=== PATIENT | male | born 1980 | race American Indian/Alaskan Native ===

== ENCOUNTER 2021-08-08 17:23 | Inpatient (IN) | payer SELFPAY ==
--- NOTE | 2021-08-08 18:07 | Emergency Department Report ---
HPI - General Chief Complaint: Dyspnea/Respdistress Time Seen by Provider: 08/08/21 17:49 - HPI HPI: MSE 7 The patient is a 41-year-old male present with a chief complaint of abdominal swelling. The patient states over the past 4 days he has noticed increased abdominal girth in bilateral lower extremities edema. The patient states increased abdominal girth has affected his breathing so whenever he does any heavy lifting he gets very short of breath. Patient denies shortness of breath with walking or going upstairs. Patient denies history of fever. Patient states he developed a productive cough over the past 2 weeks once he stopped smoking. Patient states he has not received any vaccinations against Covid. ED Past Medical Hx - Past Medical History Previous Medical History?: No - Surgical History Additional Surgical History: Left knee - Family History Family history: no significant - Social History Smoking Status: Former Smoker (None x2 weeks) Substance Use Type: Marijuana ED Review of Systems ROS: Stated complaint: ABD PAIN Other details as noted in HPI Constitutional: denies: fever Eyes: denies: eye pain ENT: denies: throat pain Respiratory: shortness of breath, SOB with exertion Cardiovascular: denies: chest pain Endocrine: no symptoms reported Gastrointestinal: denies: abdominal pain Genitourinary: denies: dysuria Skin: denies: rash Neurological: denies: headache Physical Exam - Physical Exam Vital Signs: Vital Signs 08/08/21 19:06 Temperature 98.4 F Pulse Rate 115 H Respiratory 16 Rate Blood Pressure 132/86 O2 Sat by Pulse 100 Oximetry Physical Exam: GENERAL: The patient is well-developed well-nourished male sitting in chair not appearing to be in acute distress. [] HEENT: Normocephalic. Atraumatic. Extraocular motions are intact. Patient has moist mucous membranes. NECK: Supple. Trachea midline CHEST/LUNGS: Clear to auscultation. There is no respiratory distress noted. HEART/CARDIOVASCULAR: Regular. There is no tachycardia. There is no gallop rub or murmur. ABDOMEN: Abdomen is soft, nontender. Patient has normal bowel sounds. Obese SKIN: There is no rash. There is 1+ bilateral lower extremity pitting edema. There is no diaphoresis. NEURO: The patient is awake, alert, and oriented. The patient is cooperative. The patient has no focal neurologic deficits. The patient has normal speech. GCS 15 MUSCULOSKELETAL: There is no evidence of acute injury. ED Medical Decision Making - Lab Data Result diagrams: 08/08/21 18:23 08/08/21 18:23 Laboratory Tests 08/08/21 08/08/21 18:23 18:23 WBC 4.6 RBC 5.43 H Hgb 13.7 Hct 42.6 MCV 78 L MCH 25 L MCHC 32 RDW 15.0 Plt Count 197 [place] % (Auto) Child Psychologist Sodium 141 Potassium 3.8 Chloride 106.6 Carbon Dioxide 20 L Anion Gap 18 BUN 8 L Creatinine 0.7 L Estimated GFR > 60 BUN/Creatinine Ratio 11 Glucose 183 H Calcium 8.5 Total Bilirubin 0.60 AST 15 ALT < 5 L Alkaline Phosphatase 142 H NT-Pro-B Natriuret Pep 2792 H Total Protein 7.8 Albumin 3.4 L Albumin/Globulin Ratio 0.8 Lipase 23 - EKG Data -: EKG Interpreted by Me EKG shows normal: sinus rhythm, axis Rate: tachycardia (113 bpm) - EKG Data When compared to previous EKG there are: previous EKG unavailable Interpretation: other (No ischemic changes) - Radiology Data Radiology results: report reviewed (Acute abdominal series with chest x-ray), image reviewed (Acute abdominal series with chest x-ray) interpreted by me: Acute abdominal series with chest x-ray-no focal infiltrates, pneumothorax. No free air. Nonobstructive bowel gas pattern [address] [address] XRay Report Signed Patient: JUANA OJEDA III MR#: [id number] : 1980 Acct:[id number] Age/Sex: 41 / M ADM Date: 08/08/21 Loc: ED Attending Dr: Ordering Physician: BRENNA JENKINS MD Date of Service: 08/08/21 Procedure(s): XR abd series w cxr 1V Accession Number(s): [id number] cc: BRENNA JENKINS MD Fluoro Time In Minutes: ABDOMEN 4 VIEW(S) INDICATION: Increased abdominal girth, shortness of breath. COMPARISON: None available. FINDINGS: Bowel gas pattern: No significant abnormality. Free air: None seen. Stones: None seen. Chest: The cardiac silhouette is moderately enlarged. The lungs are clear. Additional Findings: No additional significant findings. IMPRESSION: Moderate cardiomegaly without other acute findings. Signer Name: Charles Peace MD Signed: 08/08/2021 6:25 PM Workstation Name: [id number] Transcribed By: [place] Dictated By: Charles Peace MD Electronically Authenticated By: Charles Peace MD Signed Date/Time: 08/08/211824 DD/ 24 TD/TT: Print Cancel - Differential Diagnosis Peripheral edema, CHF, renal insufficiency/renal failure, hepatic failure Critical care attestation.: If time is entered above; I have spent that time in minutes in the direct care of this critically ill patient, excluding procedure time. ED Disposition Clinical Impression: New onset of congestive heart failure, Peripheral edema Disposition: ADMITTED INPATIENT Is pt being admited?: Yes Does the pt Need Aspirin: Yes Condition: Fair Time of Disposition: 19:15 (Hospitalist notified (Dr. Hawley))
--- NOTE | 2021-08-08 18:30 | XRay Report ---
ABDOMEN 4 VIEW(S) INDICATION: Increased abdominal girth, shortness of breath. COMPARISON: None available. FINDINGS: Bowel gas pattern: No significant abnormality. Free air: None seen. Stones: None seen. Chest: The cardiac silhouette is moderately enlarged. The lungs are clear. Additional Findings: No additional significant findings. IMPRESSION: Moderate cardiomegaly without other acute findings. Signer Name: Charles Peace MD Signed: 08/08/2021 6:25 PM Workstation Name: [id number]
[2021-08-08 18:40] LABS: Hematocrit 42.6 % (35.5-45.6); Hemoglobin 13.7 gm/dl (11.8-15.2); Mean Corpuscular HGB Conc 32 % (32-34); Mean Corpuscular Volume 78 fl (84-94); Platelet Count 197 K/mm3 (140-440); Red Blood Count 5.43 M/mm3 (3.65-5.03)
[2021-08-08 19:02] LABS: Albumin 3.4 g/dL (3.9-5); Blood Urea Nitrogen 8 mg/dL (9-20); Calcium 8.5 mg/dL (8.4-10.2); Hemolysis Index 8
[2021-08-08 19:12] LABS: Alanine Aminotransferase < 5 units/L (7-56); BUN/Creatinine Ratio 11
[2021-08-08] MEDS ORDERED: ASPIRIN 325 MG TAB PO ONE (19:15)
[2021-08-08] MEDS ORDERED: FUROSEMIDE 40 MG/4 ML INJ IV ONE (19:20)
[2021-08-08 19:45] LABS: RBC Morphology Normal; Total Cells Counted 100
[2021-08-08] MEDS ORDERED: oxyCODONE /ACETAMINOPHEN 5-325MG TAB PO PRN (23:06)
[2021-08-08] MEDS ORDERED: METOCLOPRAMIDE 10 MG/2 ML INJ IV PRN (23:06)
[2021-08-08] MEDS ORDERED: ONDANSETRON 4 MG/2 ML INJ IV PRN (23:06)
[2021-08-08] MEDS ORDERED: ACETAMINOPHEN 325 MG TAB PO PRN (23:06)
[2021-08-08] MEDS: HEPARIN 5,000 UNIT/1 ML VIAL SUB-Q SCH (23:28)
[2021-08-08] MEDS: FUROSEMIDE 40 MG/4 ML INJ IV SCH (23:29)
[2021-08-09] MEDS: FUROSEMIDE 40 MG/4 ML INJ IV SCH ×2 (05:16→18:08)
--- NOTE | 2021-08-09 07:12 | History and Physical Report ---
History of Present Illness Date of examination: 08/08/21 Date of admission: 08/08/21 19:55 Chief complaint: Increasing shortness of breath for 2 weeks History of present illness: 41-year-old male with no significant past medical history comes in for increasing shortness of breath for 2 weeks and also increasing abdominal girth and swelling of both lower extremities. Patient has no known history of CHF. Patient has no history of hypertension. Shortness of breath on minimal exertion and orthopnea present. Patient sitting in chair comfortably during my examina tion. - Past Medical History Previous Medical History?: No - Surgical History Additional Surgical History: Left knee - Family History Family history: no significant - Social History Smoking Status: Former Smoker (None x2 weeks) Substance Use Type: Marijuana Review of Systems ROS: Stated complaint: ABD PAIN Other details as noted in HPI Constitutional: denies: fever Eyes: denies: eye pain ENT: denies: throat pain Respiratory: shortness of breath, SOB with exertion Cardiovascular: denies: chest pain Endocrine: no symptoms reported Gastrointestinal: denies: abdominal pain Genitourinary: denies: dysuria Skin: denies: rash Neurological: denies: headache Medications and Allergies Allergies Allergy/AdvReac Type Severity Reaction Status Date / Time No Known Allergies Allergy Verified 08/08/21 23:11 Active Meds: Active Medications Acetaminophen (Acetaminophen 325 Mg Tab) 650 mg PO Q4H PRN PRN Reason: Pain MILD(1-3)/Fever >100.5/[place] Furosemide (Furosemide 40 Mg/4 Ml Inj) 40 mg IV 0600,1800 [facility] Last Admin: 08/09/21 05:16 Dose: 40 mg Documented by: Heparin Sodium (Porcine) (Heparin 5,000 Unit/1 Ml Vial) 5,000 unit SUB-Q Q12HR [facility] Last Admin: 08/08/21 23:28 Dose: 5,000 unit Documented by: Metoclopramide HCl (Metoclopramide 10 Mg/2 Ml Inj) 10 mg IV Q6H PRN PRN Reason: Nausea And Vomiting Ondansetron HCl (Ondansetron 4 Mg/2 Ml Inj) 4 mg IV Q8H PRN PRN Reason: Nausea And Vomiting Oxycodone/Acetaminophen (Oxycodone /Acetaminophen 5-325mg Tab) 1 tab PO Q6H PRN PRN Reason: Pain, Moderate (4-6) Sodium Chloride (Sodium Chloride 0.9% 10 Ml Flush Syringe) 10 ml IV BID LB Sodium Chloride (Sodium Chloride 0.9% 10 Ml Flush Syringe) 10 ml IV PRN PRN PRN Reason: LINE FLUSH Exam - Constitutional Vitals: Temp Pulse Resp BP Pulse Ox 97.8 F 116 H 20 136/99 100 08/08/21 23:26 08/09/21 04:52 08/09/21 04:52 08/09/21 04:52 08/09/21 04:52 General appearance: Present: no acute distress, well-nourished - EENT Eyes: Present: PERRL ENT: hearing intact, clear oral mucosa - Neck Neck: Present: supple, normal ROM - Respiratory Respiratory effort: normal Respiratory: bilateral: CTA - Cardiovascular Heart rate: 78 Rhythm: regular Heart Sounds: Present: S1 & S2. Absent: rub, click - Extremities Extremities: no ischemia, pulses intact, pulses symmetrical, No edema Extremity abnormal: edema (2 plus pedal edema) Peripheral Pulses: within normal limits - Abdominal General gastrointestinal: Present: soft, non-tender, non-distended, normal bowel sounds Male genitourinary: Present: normal - Integumentary Integumentary: Present: clear, warm, dry - Musculoskeletal Musculoskeletal: gait normal, strength equal bilaterally - Psychiatric Psychiatric: appropriate mood/affect, intact judgment & insight - Neurologic Neurologic: CNII-XII intact, moves all extremities HEART Score - HEART Score History: Highly suspicious Age: < 45 Risk factors: No known risk factors Troponin: < normal limit - Critical Actions Critical Actions: 0-3 pts:0.9-1.7%risk of adverse cardiac event.Candidate for discharge Results - Labs CBC & Chem 7: 08/08/21 18:23 08/08/21 18:23 Labs: Laboratory Last Values WBC 4.6 K/mm3 (4.5-11.0) 08/08/21 18:23 RBC 5.43 M/mm3 (3.65-5.03) H 08/08/21 18:23 Hgb 13.7 gm/dl (11.8-15.2) 08/08/21 18:23 Hct 42.6 % (35.5-45.6) 08/08/21 18:23 MCV 78 fl (84-94) L 08/08/21 18:23 MCH 25 pg (28-32) L 08/08/21 18: MCHC 32 % (32-34) 08/08/21 18: RDW 15.0 % (13.2-15.2) 08/08/21 18: Plt Count 197 K/mm3 (140-440) 08/08/21 18:23 [place] % (Auto) Combination Machine Tool Setter 08/08/21 18: Add Manual Diff Complete 08/08/21 18: Total Counted 100 08/08/21 18: Seg Neuts % (Manual) 56.0 % (40.0-70.0) 08/08/21 18: Lymphocytes % (Manual) 23.0 % (13.4-35.0) 08/08/21 18: Monocytes % (Manual) 17.0 % (0.0-7.3) H 08/08/21 18: Eosinophils % (Manual) 3.0 % (0.0-4.3) 08/08/21 18: Basophils % (Manual) 1.0 % (0.0-1.8) 08/08/21 18: Nucleated RBC % Not Reportable 08/08/21 18: Seg Neutrophils # Man 2.6 K/mm3 (1.8-7.7) 08/08/21 18: Band Neutrophils # 0.0 K/mm3 08/08/21 18: Lymphocytes # (Manual) 1.1 K/mm3 (1.2-5.4) L 08/08/21 18: Abs React Lymphs (Man) 0.0 K/mm3 08/08/21 18: Monocytes # (Manual) 0.8 K/mm3 (0.0-0.8) 08/08/21 18: Eosinophils # (Manual) 0.1 K/mm3 (0.0-0.4) 08/08/21 18: Basophils # (Manual) 0.0 K/mm3 (0.0-0.1) 08/08/21 18:23 Metamyelocytes # 0.0 K/mm3 08/08/21 18:23 Myelocytes # 0.0 K/mm3 08/08/21 18:23 Promyelocytes # 0.0 K/mm3 08/08/21 18:23 Blast Cells # 0.0 K/mm3 08/08/21 18:23 WBC Morphology Not Reportable 08/08/21 18:23 Hypersegmented Neuts Not Reportable 08/08/21 18:23 Hyposegmented Neuts Not Reportable 08/08/21 18:23 Hypogranular Neuts Not Reportable 08/08/21 18:23 Smudge Cells Not Reportable 08/08/21 18:23 Toxic Granulation Not Reportable 08/08/21 18:23 Toxic Vacuolation Not Reportable 08/08/21 18:23 Dohle Bodies Not Reportable 08/08/21 18:23 Pelger-Huet Anomaly Not Reportable 08/08/21 18:23 Mike Rods Not Reportable 08/08/21 18:23 Platelet Estimate Not Reportable 08/08/21 18:23 Clumped Platelets Not Reportable 08/08/21 18:23 Plt Clumps, EDTA Not Reportable 08/08/21 18:23 Large Platelets Not Reportable 08/08/21 18:23 Giant Platelets Not Reportable 08/08/21 18:23 Platelet Satelliting Not Reportable 08/08/21 18:23 Plt Morphology Comment Not Reportable 08/08/21 18:23 RBC Morphology Normal 08/08/21 18:23 Dimorphic RBCs Not Reportable 08/08/21 18:23 Polychromasia Not Reportable 08/08/21 18:23 Hypochromasia Not Reportable 08/08/21 18:23 Poikilocytosis Not Reportable 08/08/21 18:23 Anisocytosis Not Reportable 08/08/21 18:23 Microcytosis Not Reportable 08/08/21 18:23 Macrocytosis Not Reportable 08/08/21 18:23 Spherocytes Not Reportable 08/08/21 18:23 Pappenheimer Bodies Not Reportable 08/08/21 18:23 Sickle Cells Not Reportable 08/08/21 18:23 Target Cells Not Reportable 08/08/21 18:23 Tear Drop Cells Not Reportable 08/08/21 18:23 Ovalocytes Not Reportable 08/08/21 18:23 Helmet Cells Not Reportable 08/08/21 18:23 Jasmine-Iona Bodies Not Reportable 08/08/21 18:23 [place] Rings Not Reportable 08/08/21 18:23 Froylan Cells Not Reportable 08/08/21 18:23 Bite Cells Not Reportable 08/08/21 18:23 Crenated Cell Not Reportable 08/08/21 18:23 Elliptocytes Not Reportable 08/08/21 18:23 Acanthocytes (Spur) Not Reportable 08/08/21 18:23 Rouleaux Not Reportable 08/08/21 18:23 Hemoglobin C Crystals Not Reportable 08/08/21 18:23 Schistocytes Not Reportable 08/08/21 18:23 Malaria parasites Not Reportable 08/08/21 18:23 Naldo Bodies Not Reportable 08/08/21 18:23 Hem Pathologist Commnt No 08/08/21 18:23 Sodium 141 mmol/L (137-145) 08/08/21 18:23 Potassium 3.8 mmol/L (3.6-5.0) 08/08/21 18:23 Chloride 106.6 mmol/L (98-107) 08/08/21 18:23 Carbon Dioxide 20 mmol/L (22-30) L 08/08/21 18:23 Anion Gap 18 mmol/L 08/08/21 18:23 BUN 8 mg/dL (9-20) L 08/08/21 18:23 Creatinine 0.7 mg/dL (0.8-1.3) L 08/08/21 18:23 Estimated GFR > 60 ml/min 08/08/21 18:23 BUN/Creatinine Ratio 11 % 08/08/21 18:23 Glucose 183 mg/dL (75-100) H 08/08/21 18:23 Calcium 8.5 mg/dL (8.4-10.2) 08/08/21 18:23 Total Bilirubin 0.60 mg/dL (0.1-1.2) 08/08/21 18:23 AST 15 units/L (5-40) 08/08/21 18:23 ALT < 5 units/L (7-56) L 08/08/21 18:23 Alkaline Phosphatase 142 units/L (35-129) H 08/08/21 18:23 NT-Pro-B Natriuret Pep 2792 pg/mL (0-450) H 08/08/21 18:23 Total Protein 7.8 g/dL (6.3-8.2) 11/19/21 18:23 Albumin 3.4 g/dL (3.9-5) L 08/08/21 18:23 Albumin/Globulin Ratio 0.8 % 08/08/21 18:23 Lipase 23 units/L (13-60) 08/08/21 18:23 - Imaging and Cardiology EKG: report reviewed (Sinus tachycardia) Chest x-ray: report reviewed Imaging and Cardiology: Chest x-ray Moderate cardiomegaly without other acute findings [place]/IV: Voiding Method Toilet Assessment and Plan Advance Directives: Yes (Full code) VTE prophylaxis?: Chemical Plan of care discussed with patient/family: Yes - Patient Problems (1) Acute exacerbation of CHF (congestive heart failure) Current Visit: Yes Status: Acute Qualifiers: Heart failure type: combined systolic and diastolic Qualified Code(s): 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 Plan to address problem: No prior history of CHF IV Lasix initiated BNP elevated Echocardiogram for ejection fraction and valve function Cardiology consult requested (2) HTN (hypertension) Current Visit: Yes Status: Acute Qualifiers: Hypertension type: primary hypertension Qualified Code(s): I10 - Essential (primary) hypertension Plan to address problem: Borderline hypertension Diastolic is 86-95 Initiated on carvedilol 6.5 every 12 (3) DVT prophylaxis Current Visit: Yes Status: Acute Plan to address problem: On anticoagulation GI prophylaxis (4) Advance directive discussed with patient Current Visit: Yes Status: Acute Plan to address problem: Discussed advanced directives with patient. Patient is full code
[2021-08-09] MEDS: METOPROLOL SUCCINATE XL 25 MG TAB PO SCH (09:43)
[2021-08-09] MEDS: HEPARIN 5,000 UNIT/1 ML VIAL SUB-Q SCH ×2 (09:43→21:20)
[2021-08-09] MEDS ORDERED: carvediloL 6.25 MG TAB PO SCH (10:00)
[2021-08-09] MEDS ORDERED: FUROSEMIDE 40 MG/4 ML INJ IV SCH (10:00)
--- NOTE | 2021-08-09 13:27 | Electrocardiograph Report ---
[facility] Test Date: 2021-08-08 Test Time: 19:41:25 Pat Name: JUANA OJEDA III Department: Room: A454 1 Gender: M Pole Cutter: : 1980 Requested By: BRENNA JENKINS Order Number: [id number] Reading MD: Allen Crisostomo Measurements Intervals [place] Rate: 113 P: 73 DE: 153 QRS: 89 QRSD: 84 T: 131 QT: 349 QTc: 478 Interpretive Statements Sinus tachycardia Anteroseptal infarct, old Nonspecific T abnormalities, lateral leads No previous ECG available for comparison Electronically Signed On 08-09-2021 13:26:28 EST by Allen Crisostomo
--- NOTE | 2021-08-09 17:14 | Progress Note ---
Assessment and Plan Assessment and plan: 41-year-old male with no significant past medical history hypertension but not taking meds since years comes in for increasing shortness of breath for 2 weeks, weight gain of about 40 pounds, increasing abdominal girth and swelling of both lower extremities. Patient has no known history of CHF. Shortness of breath on minimal exertion and orthopnea present. Patient is admitted for newly diagnosed CHF. Assessment: Newly diagnosed severe cardiomyopathy and systolic heart failure Presents with 2-week history of 40 pound weight gain, dyspnea, orthopnea, abdominal distention and leg edema BNP 2792, unremarkable CBC and CMP. Moderate cardiomegaly on chest x-ray but no pulmonary edema. EKG: Sinus tach 113, loss of R in V2 and V3. Echo: Mild LVH, mild LV enlargement, LVEF 10 to 15%, RV moderately dilated with paradoxical septal motion consistent with RV volume overload, mild biatrial enlargement, normal aortic valve, thickened mitral valve with moderate MR, severe TR, mild pulmonary hypertension Etiology is unclear, patient reports a diagnosis of hypertension several years ago but off medical therapy Hypertension Per patient, diagnosable years ago but not on meds, not monitoring Obesity COVID-19 test negative by PCR Plan: Initiate heart failure regimen as tolerated Lasix 40 mg IV twice daily Beta-roger, ACEI, spironolactone Monitor renal function and electrolytes Restrict oral fluid intake to 1500 mL and 2 g sodium diet Daily weights Cardiology consulted DVT prophylaxis: Subcu heparin Discussed with the patient in detail. History Interval history: Patient reports breathing improving since admitted. Patient denies chest pains, palpitations, lightheadedness/dizziness. He has no significant cough. Hospitalist Physical - Constitutional Vitals: Temp Pulse Resp BP Pulse Ox 97.7 F 107 H 20 140/85 97 08/09/21 16:25 08/09/21 16:25 08/09/21 16:25 08/09/21 16:25 08/09/21 16:25 General appearance: Present: no acute distress, obese - EENT Eyes: Present: PERRL, EOM intact - Neck Neck: Present: supple, other (Neck veins not distended) - Respiratory Respiratory effort: normal Respiratory: bilateral: CTA - Cardiovascular Rhythm: regular - Extremities Extremity abnormal: edema, other (2+ pretibial edema) - Abdominal General gastrointestinal: soft, non-tender, other (Obese) - Integumentary Integumentary: Absent: rash - Psychiatric Psychiatric: appropriate mood/affect - Neurologic Neurologic: no focal deficits, moves all extremities HEART Score - HEART Score Age: < 45 Risk factors: No known risk factors Troponin: < normal limit - Critical Actions Critical Actions: 0-3 pts:0.9-1.7%risk of adverse cardiac event.Candidate for discharge Results - Labs CBC & Chem 7: 08/08/21 18:23 08/08/21 18:23 Labs: Laboratory Last Values WBC 4.6 K/mm3 (4.5-11.0) 08/08/21 18: RBC 5.43 M/mm3 (3.65-5.03) H 08/08/21 18: Hgb 13.7 gm/dl (11.8-15.2) 08/08/21 18: Hct 42.6 % (35.5-45.6) 08/08/21 18: MCV 78 fl (84-94) L 08/08/21 18: MCH 25 pg (28-32) L 08/08/21 18: MCHC 32 % (32-34) 08/08/21 18: RDW 15.0 % (13.2-15.2) 08/08/21 18: Plt Count 197 K/mm3 (140-440) 08/08/21 18:23 [place] % (Auto) Unified Communications Engineer 08/08/21 18:23 Add Manual Diff Complete 08/08/21 18:23 Total Counted 100 08/08/21 18: Seg Neuts % (Manual) 56.0 % (40.0-70.0) 08/08/21 18:23 Lymphocytes % (Manual) 23.0 % (13.4-35.0) 08/08/21 18: Monocytes % (Manual) 17.0 % (0.0-7.3) H 08/08/21 18: Eosinophils % (Manual) 3.0 % (0.0-4.3) 08/08/21 18: Basophils % (Manual) 1.0 % (0.0-1.8) 08/08/21 18: Nucleated RBC % Not Reportable 08/08/21 18: Seg Neutrophils # Man 2.6 K/mm3 (1.8-7.7) 08/08/21 18:23 Band Neutrophils # 0.0 K/mm3 08/08/21 18:23 Lymphocytes # (Manual) 1.1 K/mm3 (1.2-5.4) L 08/08/21 18:23 Abs React Lymphs (Man) 0.0 K/mm3 08/08/21 18:23 Monocytes # (Manual) 0.8 K/mm3 (0.0-0.8) 08/08/21 18:23 Eosinophils # (Manual) 0.1 K/mm3 (0.0-0.4) 08/08/21 18:23 Basophils # (Manual) 0.0 K/mm3 (0.0-0.1) 08/08/21 18:23 Metamyelocytes # 0.0 K/mm3 08/08/21 18:23 Myelocytes # 0.0 K/mm3 08/08/21 18:23 Promyelocytes # 0.0 K/mm3 08/08/21 18:23 Blast Cells # 0.0 K/mm3 08/08/21 18:23 WBC Morphology Not Reportable 08/08/21 18:23 Hypersegmented Neuts Not Reportable 08/08/21 18:23 Hyposegmented Neuts Not Reportable 08/08/21 18:23 Hypogranular Neuts Not Reportable 08/08/21 18:23 Smudge Cells Not Reportable 08/08/21 18:23 Toxic Granulation Not Reportable 08/08/21 18:23 Toxic Vacuolation Not Reportable 08/08/21 18:23 Dohle Bodies Not Reportable 08/08/21 18:23 Pelger-Huet Anomaly Not Reportable 08/08/21 18:23 Mike Rods Not Reportable 08/08/21 18:23 Platelet Estimate Not Reportable 08/08/21 18:23 Clumped Platelets Not Reportable 08/08/21 18:23 Plt Clumps, EDTA Not Reportable 08/08/21 18:23 Large Platelets Not Reportable 08/08/21 18:23 Giant Platelets Not Reportable 08/08/21 18:23 Platelet Satelliting Not Reportable 08/08/21 18:23 Plt Morphology Comment Not Reportable 08/08/21 18:23 RBC Morphology Normal 08/08/21 18:23 Dimorphic RBCs Not Reportable 08/08/21 18:23 Polychromasia Not Reportable 08/08/21 18:23 Hypochromasia Not Reportable 08/08/21 18:23 Poikilocytosis Not Reportable 08/08/21 18:23 Anisocytosis Not Reportable 08/08/21 18:23 Microcytosis Not Reportable 08/08/21 18:23 Macrocytosis Not Reportable 08/08/21 18:23 Spherocytes Not Reportable 08/08/21 18:23 Pappenheimer Bodies Not Reportable 08/08/21 18:23 Sickle Cells Not Reportable 08/08/21 18:23 Target Cells Not Reportable 08/08/21 18:23 Tear Drop Cells Not Reportable 08/08/21 18:23 Ovalocytes Not Reportable 08/08/21 18:23 Helmet Cells Not Reportable 08/08/21 18:23 [place]asmine[place] Bodies Not Reportable 08/08/21 18:23 [employer] Rings Not Reportable 08/08/21 18:23 [place] Cells Not Reportable 08/08/21 18:23 Bite Cells Not Reportable 08/08/21 18:23 Crenated Cell Not Reportable 08/08/21 18:23 Elliptocytes Not Reportable 08/08/21 18:23 Acanthocytes (Spur) Not Reportable 08/08/21 18:23 Rouleaux Not Reportable 08/08/21 18:23 Hemoglobin C Crystals Not Reportable 08/08/21 18:23 Schistocytes Not Reportable 08/08/21 18:23 Malaria parasites Not Reportable 08/08/21 18:23 Naldo Bodies Not Reportable 08/08/21 18:23 Hem Pathologist Commnt No 08/08/21 18:23 Sodium 141 mmol/L (137-145) 08/08/21 18:23 Potassium 3.8 mmol/L (3.6-5.0) 08/08/21 18:23 Chloride 106.6 mmol/L (98-107) 08/08/21 18:23 Carbon Dioxide 20 mmol/L (22-30) L 08/08/21 18:23 Anion Gap 18 mmol/L 08/08/21 18:23 BUN 8 mg/dL (9-20) L 08/08/21 18:23 Creatinine 0.7 mg/dL (0.8-1.3) L 08/08/21 18:23 Estimated GFR > 60 ml/min 08/08/21 18:23 BUN/Creatinine Ratio 11 % 08/08/21 18:23 Glucose 183 mg/dL (75-100) H 08/08/21 18:23 Calcium 8.5 mg/dL (8.4-10.2) 08/08/21 18:23 Total Bilirubin 0.60 mg/dL (0.1-1.2) 08/08/21 18:23 AST 15 units/L (5-40) 08/08/21 18:23 ALT < 5 units/L (7-56) L 08/08/21 18:23 Alkaline Phosphatase 142 units/L (35-129) H 08/08/21 18:23 NT-Pro-B Natriuret Pep 2792 pg/mL (0-450) H 08/08/21 18:23 Total Protein 7.8 g/dL (6.3-8.2) 08/08/21 18:23 Albumin 3.4 g/dL (3.9-5) L 08/08/21 18:23 Albumin/Globulin Ratio 0.8 % 08/08/21 18:23 Lipase 23 units/L (13-60) 08/08/21 18:23 Coronavirus (PCR) Negative (Negative) 08/09/21 08:09 De La Rosa/IV: Voiding Method Urinal Active Medications - Current Medications Current Medications: Generic Name Dose Route Start Last Admin Trade Name Freq PRN Reason Stop Dose Admin Acetaminophen 650 mg 08/08/21 23:06 Acetaminophen 325 Mg Tab PO Q4H PRN Pain MILD(1-3)/Fever >100.5/VALVERED Carvedilol 3.125 mg 08/09/21 22:00 Carvedilol 3.125 Mg Tab PO BID LB Furosemide 40 mg 08/09/21 18:00 Furosemide 40 Mg/4 Ml Inj IV 0600,1800 LB Heparin Sodium (Porcine) 5,000 unit 08/08/21 23:15 08/09/21 09:43 Heparin 5,000 Unit/1 Ml Vial SUB-Q 5,000 unit Q12HR LB Administration Lisinopril 2.5 mg 08/09/21 22:00 Lisinopril 5 Mg Tab PO BID LB Magnesium Oxide 400 mg 08/10/21 10:00 Magnesium Oxide 400 Mg Tab PO QDAY LB Metoprolol Succinate 25 mg 08/09/21 10:00 08/09/21 09:43 Metoprolol Succinate Xl 25 Mg Tab PO 25 mg QDAY LB Administration Ondansetron HCl 4 mg 08/08/21 23:06 Ondansetron 4 Mg/2 Ml Inj IV Q8H PRN Nausea And Vomiting Potassium Chloride 20 meq 08/09/21 16:00 Potassium Chloride Er 20 Meq Tab PO BID LB Sodium Chloride 10 ml 08/09/21 10:00 08/09/21 09:48 Sodium Chloride 0.9% 10 Ml Flush Syringe IV 10 ml BID LB Administration Sodium Chloride 10 ml 08/08/21 23:06 Sodium Chloride 0.9% 10 Ml Flush Syringe IV PRN PRN LINE FLUSH Spironolactone 25 mg 08/09/21 16:00 Spironolactone 25 Mg Tab PO QDAY LB
[2021-08-09] MEDS: SPIRONOLACTONE 25 MG TAB PO SCH (18:08)
[2021-08-09] MEDS: carvediloL 3.125 MG TAB PO SCH (21:19)
[2021-08-09] MEDS: POTASSIUM CHLORIDE ER 20 MEQ TAB PO SCH (21:19)
[2021-08-09] MEDS: LISINOPRIL 5 MG TAB PO SCH (21:20)
[2021-08-10] MEDS: FUROSEMIDE 40 MG/4 ML INJ IV SCH ×2 (07:44→18:24)
[2021-08-10] MEDS: MAGNESIUM OXIDE 400 MG TAB PO SCH (10:22)
[2021-08-10] MEDS: POTASSIUM CHLORIDE ER 20 MEQ TAB PO SCH ×2 (10:22→21:19)
[2021-08-10] MEDS: LISINOPRIL 5 MG TAB PO SCH ×2 (10:22→21:19)
[2021-08-10] MEDS: SPIRONOLACTONE 25 MG TAB PO SCH (10:22)
[2021-08-10] MEDS: carvediloL 3.125 MG TAB PO SCH (10:23)
[2021-08-10] MEDS: METOPROLOL SUCCINATE XL 25 MG TAB PO SCH (10:23)
[2021-08-10] MEDS: HEPARIN 5,000 UNIT/1 ML VIAL SUB-Q SCH ×2 (10:24→21:19)
--- NOTE | 2021-08-10 11:05 | Consultation ---
History of Present Illness Consult date: 08/10/21 Requesting physician: MISA ARTHUR Consult reason: congestive heart failure, shortness of breath History of present illness: This is a 41-year-old gentleman with a past medical history of hypertension and noncompliance with his medications who presented to [facility] emergency department complaining of increasing abdominal swelling and bilateral leg pain. A chest x-ray was suggestive of cardiomegaly. During this hospitalization an echocardiogram revealed mild left ventricular hypertrophy with an ejection fraction of 10 to 15% and mild to moderate right ventricular enlargement. He has responded to aggressive diuresis. In the emergency department he had a proBNP of 2792. Past History Past Medical History: heart failure, hypertension Past Surgical History: No surgical history Social history: smoking. denies: alcohol abuse, prescription drug abuse Family history: no significant family history Medications and Allergies Allergies Allergy/AdvReac Type Severity Reaction Status Date / Time No Known Allergies Allergy Verified 08/08/21 23:11 Home Medications Medication Instructions Recorded Confirmed Last Taken Type No Known Home Medications [No 08/09/21 08/09/21 Unknown History Reported Home Medications] Active Meds: Active Medications Acetaminophen (Acetaminophen 325 Mg Tab) 650 mg PO Q4H PRN PRN Reason: Pain MILD(1-3)/Fever >100.5/VALVERDE Carvedilol (Carvedilol 3.125 Mg Tab) 3.125 mg PO BID [facility] Last Admin: 08/10/21 10:23 Dose: 3.125 mg Documented by: Furosemide (Furosemide 40 Mg/4 Ml Inj) 40 mg IV 0600,1800 [facility] Last Admin: 08/10/21 07:44 Dose: 40 mg Documented by: Heparin Sodium (Porcine) (Heparin 5,000 Unit/1 Ml Vial) 5,000 unit SUB-Q Q12HR [facility] Last Admin: 08/10/21 10:24 Dose: 5,000 unit Documented by: Lisinopril (Lisinopril 5 Mg Tab) 2.5 mg PO BID [facility] Last Admin: 08/10/21 10:22 Dose: 2.5 mg Documented by: Magnesium Oxide (Magnesium Oxide 400 Mg Tab) 400 mg PO QDAY [facility] Last Admin: 08/10/21 10:22 Dose: 400 mg Documented by: Metoprolol Succinate (Metoprolol Succinate Xl 25 Mg Tab) 25 mg PO QDAY [facility] Last Admin: 08/10/21 10:23 Dose: 25 mg Documented by: Ondansetron HCl (Ondansetron 4 Mg/2 Ml Inj) 4 mg IV Q8H PRN PRN Reason: Nausea And Vomiting Potassium Chloride (Potassium Chloride Er 20 Meq Tab) 20 meq PO BID [facility] Last Admin: 08/10/21 10:22 Dose: 20 meq Documented by: Sodium Chloride (Sodium Chloride 0.9% 10 Ml Flush Syringe) 10 ml IV BID [facility] Last Admin: 08/10/21 10:24 Dose: 10 ml Documented by: Sodium Chloride (Sodium Chloride 0.9% 10 Ml Flush Syringe) 10 ml IV PRN PRN PRN Reason: LINE FLUSH Spironolactone (Spironolactone 25 Mg Tab) 25 mg PO QDAY [facility] Last Admin: 08/10/21 10:22 Dose: 25 mg Documented by: Review of Systems Constitutional: weight gain, no weight loss, no fever, no chills Ears, nose, mouth and throat: deferred Cardiovascular: orthopnea, edema, high blood pressure, no chest pain, no syncope Respiratory: cough Gastrointestinal: no abdominal pain, no nausea, no vomiting Genitourinary Male: no hematuria, no flank pain Rectal: no pain, no incontinence Musculoskeletal: no neck stiffness, no neck pain Integumentary: no rash Neurological: no head injury, no transient paralysis Psychiatric: no anxiety, no memory loss Physical Examination Vital Signs Temp Pulse Resp BP Pulse Ox 98.4 F 115 H 16 132/86 100 08/08/21 19:06 08/08/21 19:06 08/08/21 19:06 08/08/21 19:06 08/08/21 19:06 General appearance: no acute distress HEENT: Positive: PERRL, EOMI Neck: Positive: trachea midline Cardiac: Positive: Regular Rhythm, Tachycardia Lungs: Positive: Decreased Breath Sounds Neuro: Positive: Grossly Intact Abdomen: Positive: Unremarkable, Soft, Active Bowel Sounds Male genitourinary: Positive: deferred Skin: Negative: Rash Extremities: Present: edema, warm Results 08/08/21 18:23 08/08/21 18:23 - Imaging and Cardiology Echo: report reviewed Assessment and Plan ECHO 08/08/21: Mild left ventricular hypertrophy, EF 10 to 15%, mild RVE, septal flattening, RVSP 40 mmHg, severe tricuspid regurgitation, moderate mitral regurgitation Acute HFrEF 10-15% Cardiomyopathy Hypertension Noncompliance secondary to financial issues/no insurance Continue IV diuresis Strict I's and O's Monitor potassium and creatinine closely Discontinue Toprol-XL Titrate carvedilol as tolerated
--- NOTE | 2021-08-10 16:17 | Progress Note ---
Assessment and Plan Assessment and plan: 41-year-old male with no significant past medical history hypertension but not taking meds since years comes in for increasing shortness of breath for 2 weeks, weight gain of about 40 pounds, increasing abdominal girth and swelling of both lower extremities. Patient has no known history of CHF. Shortness of breath on minimal exertion and orthopnea present. Patient is admitted for newly diagnosed CHF. Assessment: Newly diagnosed severe cardiomyopathy and systolic heart failure Presents with 2-week history of 40 pound weight gain, dyspnea, orthopnea, abdominal distention and leg edema BNP 2792, unremarkable CBC and CMP. Moderate cardiomegaly on chest x-ray but no pulmonary edema. EKG: Sinus tach 113, loss of R in V2 and V3. Echo: Mild LVH, mild LV enlargement, LVEF 10 to 15%, RV moderately dilated with paradoxical septal motion consistent with RV volume overload, mild biatrial enlargement, normal aortic valve, thickened mitral valve with moderate MR, severe TR, mild pulmonary hypertension Etiology is unclear, patient reports a diagnosis of hypertension several years ago but off medical therapy Hypertension Per patient, diagnosable years ago but not on meds, not monitoring Morbid obesity COVID-19 test negative by PCR Plan: Initiate heart failure regimen as tolerated Lasix 40 mg IV twice daily Beta-roger, ACEI, spironolactone Monitor renal function and electrolytes, daily labs ordered but not being performed Restrict oral fluid intake to 1500 mL and 2 g sodium diet Daily weights Cardiology consulted and following Has sinus tachycardia 95-105, Coreg dose doubled Patient reports significant improvement of dyspnea, leg edema resolved. Appears asymptomatic. DVT prophylaxis: Subcu heparin Discussed with the patient in detail. History Interval history: Patient reports breathing improving since admitted. Leg swelling almost gone. Patient denies chest pains, palpitations, lightheadedness/dizziness. He has no significant cough. Urine output is not being recorded. Data labs ordered but not getting performed. Hospitalist Physical - Constitutional Vitals: Temp Pulse Resp BP Pulse Ox 98.0 F 105 H 20 116/73 100 08/10/21 07:36 08/10/21 08:34 08/10/21 07:36 08/10/21 07:36 08/10/21 08:34 General appearance: Present: no acute distress, obese - EENT Eyes: Present: PERRL ENT: hearing intact, clear oral mucosa - Neck Neck: Present: supple, other (Neck veins do not appear to be distended) - Respiratory Respiratory effort: normal Respiratory: bilateral: CTA - Cardiovascular Rhythm: regular - Extremities Extremities: No edema - Abdominal General gastrointestinal: soft, non-tender, other (Obese) - Integumentary Integumentary: Present: warm - Psychiatric Psychiatric: appropriate mood/affect - Neurologic Neurologic: no focal deficits, moves all extremities HEART Score - HEART Score Age: < 45 Risk factors: No known risk factors Troponin: < normal limit - Critical Actions Critical Actions: 0-3 pts:0.9-1.7%risk of adverse cardiac event.Candidate for discharge Results - Labs CBC & Chem 7: 08/08/21 18:23 08/08/21 18:23 Labs: Laboratory Last Values WBC 4.6 K/mm3 (4.5-11.0) 08/08/21 18: RBC 5.43 M/mm3 (3.65-5.03) H 08/08/21 18: Hgb 13.7 gm/dl (11.8-15.2) 08/08/21 18: Hct 42.6 % (35.5-45.6) 08/08/21 18:23 MCV 78 fl (84-94) L 08/08/21 18:23 MCH 25 pg (28-32) L 08/08/21 18: MCHC 32 % (32-34) 08/08/21 18: RDW 15.0 % (13.2-15.2) 08/08/21 18: Plt Count 197 K/mm3 (140-440) 08/08/21 18: [place] % (Auto) Fretted Instrument Repairer 08/08/21 18:23 Add Manual Diff Complete 08/08/21 18:23 Total Counted 100 08/08/21 18: Seg Neuts % (Manual) 56.0 % (40.0-70.0) 08/08/21 18: Lymphocytes % (Manual) 23.0 % (13.4-35.0) 08/08/21 18:23 Monocytes % (Manual) 17.0 % (0.0-7.3) H 08/08/21 18: Eosinophils % (Manual) 3.0 % (0.0-4.3) 08/08/21 18: Basophils % (Manual) 1.0 % (0.0-1.8) 08/08/21 18:23 Nucleated RBC % Not Reportable 08/08/21 18:23 Seg Neutrophils # Man 2.6 K/mm3 (1.8-7.7) 08/08/21 18:23 Band Neutrophils # 0.0 K/mm3 08/08/21 18:23 Lymphocytes # (Manual) 1.1 K/mm3 (1.2-5.4) L 08/08/21 18:23 Abs React Lymphs (Man) 0.0 K/mm3 08/08/21 18:23 Monocytes # (Manual) 0.8 K/mm3 (0.0-0.8) 08/08/21 18:23 Eosinophils # (Manual) 0.1 K/mm3 (0.0-0.4) 08/08/21 18:23 Basophils # (Manual) 0.0 K/mm3 (0.0-0.1) 08/08/21 18:23 Metamyelocytes # 0.0 K/mm3 08/08/21 18:23 Myelocytes # 0.0 K/mm3 08/08/21 18:23 Promyelocytes # 0.0 K/mm3 08/08/21 18:23 Blast Cells # 0.0 K/mm3 08/08/21 18:23 WBC Morphology Not Reportable 08/08/21 18:23 Hypersegmented Neuts Not Reportable 08/08/21 18:23 Hyposegmented Neuts Not Reportable 08/08/21 18:23 Hypogranular Neuts Not Reportable 08/08/21 18:23 Smudge Cells Not Reportable 08/08/21 18:23 Toxic Granulation Not Reportable 08/08/21 18:23 Toxic Vacuolation Not Reportable 08/08/21 18:23 Dohle Bodies Not Reportable 08/08/21 18:23 Pelger-Huet Anomaly Not Reportable 08/08/21 18:23 Mike Rods Not Reportable 08/08/21 18:23 Platelet Estimate Not Reportable 08/08/21 18:23 Clumped Platelets Not Reportable 08/08/21 18:23 Plt Clumps, EDTA Not Reportable 08/08/21 18:23 Large Platelets Not Reportable 08/08/21 18:23 Giant Platelets Not Reportable 08/08/21 18:23 Platelet Satelliting Not Reportable 08/08/21 18:23 Plt Morphology Comment Not Reportable 08/08/21 18:23 RBC Morphology Normal 08/08/21 18:23 Dimorphic RBCs Not Reportable 08/08/21 18:23 Polychromasia Not Reportable 08/08/21 18:23 Hypochromasia Not Reportable 08/08/21 18:23 Poikilocytosis Not Reportable 08/08/21 18:23 Anisocytosis Not Reportable 08/08/21 18:23 Microcytosis Not Reportable 08/08/21 18:23 Macrocytosis Not Reportable 08/08/21 18:23 Spherocytes Not Reportable 08/08/21 18:23 Pappenheimer Bodies Not Reportable 08/08/21 18:23 Sickle Cells Not Reportable 08/08/21 18:23 Target Cells Not Reportable 08/08/21 18:23 Tear Drop Cells Not Reportable 08/08/21 18:23 Ovalocytes Not Reportable 08/08/21 18:23 Helmet Cells Not Reportable 08/08/21 18:23 [place]asmine[place] Bodies Not Reportable 08/08/21 18:23 [place] Rings Not Reportable 08/08/21 18:23 [place] Cells Not Reportable 08/08/21 18:23 Bite Cells Not Reportable 08/08/21 18:23 Crenated Cell Not Reportable 08/08/21 18:23 Elliptocytes Not Reportable 08/08/21 18:23 Acanthocytes (Spur) Not Reportable 08/08/21 18:23 Rouleaux Not Reportable 08/08/21 18:23 Hemoglobin C Crystals Not Reportable 08/08/21 18:23 Schistocytes Not Reportable 08/08/21 18:23 Malaria parasites Not Reportable 08/08/21 18:23 Naldo Bodies Not Reportable 08/08/21 18:23 Hem Pathologist Commnt No 08/08/21 18:23 Sodium 141 mmol/L (137-145) 08/08/21 18:23 Potassium 3.8 mmol/L (3.6-5.0) 08/08/21 18:23 Chloride 106.6 mmol/L (98-107) 08/08/21 18:23 Carbon Dioxide 20 mmol/L (22-30) L 08/08/21 18:23 Anion Gap 18 mmol/L 08/08/21 18:23 BUN 8 mg/dL (9-20) L 08/08/21 18:23 Creatinine 0.7 mg/dL (0.8-1.3) L 08/08/21 18:23 Estimated GFR > 60 ml/min 08/08/21 18:23 BUN/Creatinine Ratio 11 % 08/08/21 18:23 Glucose 183 mg/dL (75-100) H 08/08/21 18:23 Calcium 8.5 mg/dL (8.4-10.2) 08/08/21 18:23 Total Bilirubin 0.60 mg/dL (0.1-1.2) 08/08/21 18:23 AST 15 units/L (5-40) 08/08/21 18:23 ALT < 5 units/L (7-56) L 08/08/21 18:23 Alkaline Phosphatase 142 units/L (35-129) H 08/08/21 18:23 NT-Pro-B Natriuret Pep 2792 pg/mL (0-450) H 08/08/21 18:23 Total Protein 7.8 g/dL (6.3-8.2) 08/08/21 18:23 Albumin 3.4 g/dL (3.9-5) L 08/08/21 18:23 Albumin/Globulin Ratio 0.8 % 08/08/21 18:23 Lipase 23 units/L (13-60) 08/08/21 18:23 Coronavirus (PCR) Negative (Negative) 08/09/21 08:09 De La Rosa/IV: Voiding Method Toilet Active Medications - Current Medications Current Medications: Generic Name Dose Route Start Last Admin Trade Name Freq PRN Reason Stop Dose Admin Acetaminophen 650 mg 08/08/21 23:06 Acetaminophen 325 Mg Tab PO Q4H PRN Pain MILD(1-3)/Fever >100.5/VALVERDE Carvedilol 6.25 mg 08/10/21 22:00 Carvedilol 6.25 Mg Tab PO BID LB Furosemide 40 mg 08/09/21 18:00 08/10/21 07:44 Furosemide 40 Mg/4 Ml Inj IV 40 mg 0600,1800 LB Administration Heparin Sodium (Porcine) 5,000 unit 08/08/21 23:15 08/10/21 10:24 Heparin 5,000 Unit/1 Ml Vial SUB-Q 5,000 unit Q12HR LB Administration Lisinopril 2.5 mg 08/09/21 22:00 08/10/21 10:22 Lisinopril 5 Mg Tab PO 2.5 mg BID LB Administration Magnesium Oxide 400 mg 08/10/21 10:00 08/10/21 10:22 Magnesium Oxide 400 Mg Tab PO 400 mg QDAY LB Administration Ondansetron HCl 4 mg 08/08/21 23:06 Ondansetron 4 Mg/2 Ml Inj IV Q8H PRN Nausea And Vomiting Potassium Chloride 20 meq 08/09/21 22:00 08/10/21 10:22 Potassium Chloride Er 20 Meq Tab PO 20 meq BID LB Administration Sodium Chloride 10 ml 08/09/21 10:00 08/10/21 10:24 Sodium Chloride 0.9% 10 Ml Flush Syringe IV 10 ml BID LB Administration Sodium Chloride 10 ml 08/08/21 23:06 Sodium Chloride 0.9% 10 Ml Flush Syringe IV PRN PRN LINE FLUSH Spironolactone 25 mg 08/09/21 16:00 08/10/21 10:22 Spironolactone 25 Mg Tab PO 25 mg QDAY LB Administration
[2021-08-10] MEDS: carvediloL 6.25 MG TAB PO SCH (21:19)
[2021-08-11] MEDS: FUROSEMIDE 40 MG/4 ML INJ IV SCH ×2 (06:22→20:06)
[2021-08-11] MEDS: HEPARIN 5,000 UNIT/1 ML VIAL SUB-Q SCH ×2 (10:18→21:11)
[2021-08-11] MEDS: SPIRONOLACTONE 25 MG TAB PO SCH (10:18)
[2021-08-11] MEDS: LISINOPRIL 5 MG TAB PO SCH ×2 (10:18→21:10)
[2021-08-11] MEDS: POTASSIUM CHLORIDE ER 20 MEQ TAB PO SCH ×2 (10:18→21:11)
[2021-08-11] MEDS: carvediloL 6.25 MG TAB PO SCH ×2 (10:18→21:09)
[2021-08-11] MEDS: MAGNESIUM OXIDE 400 MG TAB PO SCH (10:18)
[2021-08-11 10:43] LABS: C-Reactive Protein 1.4 mg/dL (0.00-1.30)
[2021-08-11 10:45] LABS: Blood Urea Nitrogen 10 mg/dL (9-20); Calcium 8.8 mg/dL (8.4-10.2); Hemolysis Index 2
[2021-08-11 10:48] LABS: Alanine Aminotransferase 14 units/L (7-56); Albumin 3.4 g/dL (3.9-5); BUN/Creatinine Ratio 17; Blood Urea Nitrogen 10 mg/dL (9-20); Calcium 8.8 mg/dL (8.4-10.2); Hemolysis Index 4
[2021-08-11 10:49] LABS: BUN/Creatinine Ratio 17
[2021-08-11] MEDS ORDERED: SODIUM CHLORIDE 0.9% 500 ML 500 ML IV SCH (12:00)
--- NOTE | 2021-08-11 13:52 | Progress Note ---
Assessment and Plan ECHO 08/08/21: Mild left ventricular hypertrophy, EF 10 to 15%, mild RVE, septal flattening, RVSP 40 mmHg, severe tricuspid regurgitation, moderate mitral regurgitation Acute HFrEF 10-15% Cardiomyopathy Hypertension Noncompliance secondary to financial issues/no insurance Continue IV diuresis Strict I's and O's Monitor potassium and creatinine closely Continue carvedilol Due to severely decreased EF order for LifeVest placed Plan for cardiac cath on Wednesday Patient seen in conjunction with Dr. Arellano who agrees with this plan of care. We will continue to follow - Patient Problems (1) Cardiomyopathy Current Visit: Yes Status: Acute (2) Acute exacerbation of CHF (congestive heart failure) Current Visit: Yes Status: Acute Qualifiers: Heart failure type: combined systolic and diastolic Qualified Code(s): I50.43 - Acute on chronic combined systolic (congestive) and diastolic (congestive) heart failure (3) HTN (hypertension) Current Visit: Yes Status: Acute Qualifiers: Hypertension type: primary hypertension Qualified Code(s): I10 - Essential (primary) hypertension (4) New onset of congestive heart failure Current Visit: Yes Status: Acute Subjective Date of service: 08/11/21 Principal diagnosis: new onset HFrEF Interval history: Patient sitting in bed. Reports feeling much better. Patient is in no acute distress. Sinus tach 102 on monitor Objective Vital Signs Temp Pulse Resp BP Pulse Ox 08/11/21 11:27 98.4 F 101 H 18 123/82 95 08/11/21 10:00 102 H 08/11/21 08:04 98.0 F 98 H 18 120/81 92 08/11/21 04:37 98.4 F 98 H 18 116/64 98 08/10/21 22:00 99 H 08/10/21 21:06 99.9 F H 105 H 18 126/73 94 08/10/21 20:09 98 08/10/21 15:56 97.3 F L 103 H 18 123/67 99 - Physical Examination General: No Apparent Distress HEENT: Positive: PERRL, EOMI Neck: Positive: trachea midline Cardiac: Positive: Regular Rhythm, Tachycardia Lungs: Positive: Normal Breath Sounds Neuro: Positive: Grossly Intact Abdomen: Positive: Unremarkable, Soft, Active Bowel Sounds Skin: Negative: Rash Extremities: Present: upper extr. pulses, edema, warm - Labs and Meds Cardiac Enzymes 08/11/21 08/11/21 Range/Units 10:03 10:03 AST 21 (5-40) units/L Lactate Dehydrogenase 221 H (91-180) units/L Comprehensive Metabolic Panel 08/11/21 08/11/21 Range/Units 10:03 10:03 Sodium 139 139 (137-145) mmol/L Potassium 3.8 4.0 (3.6-5.0) mmol/L Chloride 99.2 99.1 (98-107) mmol/L Carbon Dioxide 27 D 28 (22-30) mmol/L BUN 10 10 (9-20) mg/dL Creatinine 0.6 L 0.6 L (0.8-1.3) mg/dL Glucose 218 H 216 H (75-100) mg/dL Calcium 8.8 8.8 (8.4-10.2) mg/dL AST 21 (5-40) units/L ALT 14 (7-56) units/L Alkaline Phosphatase 140 H (35-129) units/L Total Protein 8.2 (6.3-8.2) g/dL Albumin 3.4 L (3.9-5) g/dL - Imaging and Cardiology EKG: report reviewed (Sinus tachycardia) Echo: report reviewed - Telemetry EKG Rhythm: Sinus Tachycardia - EKG Sinus rhythms and dysrhythmias: sinus tachycardia
--- NOTE | 2021-08-11 18:19 | Progress Note ---
Assessment and Plan Assessment and plan: 41-year-old male with no significant past medical history hypertension but not taking meds since years comes in for increasing shortness of breath for 2 weeks, weight gain of about 40 pounds, increasing abdominal girth and swelling of both lower extremities. Patient has no known history of CHF. Shortness of breath on minimal exertion and orthopnea present. Patient is admitted for newly diagnosed CHF. Assessment: Newly diagnosed severe cardiomyopathy and systolic heart failure, EF 10 to 15% Presents with 2-week history of 40 pound weight gain, dyspnea, orthopnea, abdominal distention and leg edema BNP 2792, unremarkable CBC and CMP. Moderate cardiomegaly on chest x-ray but no pulmonary edema. EKG: Sinus tach 113, loss of R in V2 and V3. Echo: Mild LVH, mild LV enlargement, LVEF 10 to 15%, RV moderately dilated with paradoxical septal motion consistent with RV volume overload, mild biatrial enlargement, normal aortic valve, thickened mitral valve with moderate MR, severe TR, mild pulmonary hypertension Etiology is unclear, patient reports a diagnosis of hypertension several years ago but off medical therapy Scheduled for cardiac cath on Wednesday, 08/13 Hypertension Per patient, diagnosed years ago but not on meds, not monitoring Newly diagnosed diabetes mellitus, type II, A1c 10 Patient gives no history of diabetes, blood glucose noted to be elevated, A1c found to be 10 Ordered nurses to provide diabetes education and Accu-Cheks Start Lantus 30 units every morning and Humalog 5 units AC Needs to lose weight aggressively, placed on ADA diet Morbid obesity COVID-19 test negative by PCR Plan: Uptitrate heart failure regimen as tolerated Continue Lasix 40 mg IV twice daily Beta-roger, ACEI, spironolactone Monitor renal function and electrolytes, patient refusing labs but agreed to get today Restrict oral fluid intake to 1500 mL and 2 g sodium diet Daily weights Cardiology consulted and following, scheduled for cardiac cath on 08/13 Has sinus tachycardia 95-105, Coreg dose doubled Patient reports significant improvement of dyspnea, leg edema resolved. Appears asymptomatic. DVT prophylaxis: Subcu heparin Discussed with the patient in detail. History Interval history: Patient reports breathing improving since admitted. Leg swelling almost gone. Patient denies chest pains, palpitations, lightheadedness/dizziness. He has no significant cough. Urine output is not being recorded. Patient has no history of diabetes, blood glucose elevated and the A1c found to be 10. Ordered insulin and diabetes education. Hospitalist Physical - Constitutional Vitals: Temp Pulse Resp BP Pulse Ox 98.1 F 102 H 18 122/90 95 08/11/21 16:07 08/11/21 16:07 08/11/21 16:07 08/11/21 16:07 08/11/21 16:07 General appearance: Present: no acute distress, obese - EENT Eyes: Present: PERRL, EOM intact ENT: clear oral mucosa - Neck Neck: Present: supple - Respiratory Respiratory effort: normal Respiratory: bilateral: CTA - Cardiovascular Rhythm: regular - Extremities Extremities: No edema - Abdominal General gastrointestinal: soft, non-tender, other (Obese) - Integumentary Integumentary: Present: warm - Psychiatric Psychiatric: appropriate mood/affect - Neurologic Neurologic: no focal deficits, moves all extremities HEART Score - HEART Score Age: < 45 Risk factors: No known risk factors Troponin: Troponin T < 0.010 ng/mL (0.00-0.029) 08/11/21 10:03 Troponin: < normal limit - Critical Actions Critical Actions: 0-3 pts:0.9-1.7%risk of adverse cardiac event.Candidate for discharge Results - Labs CBC & Chem 7: 08/08/21 18:23 08/11/21 10:03 Labs: Laboratory Last Values WBC 4.6 K/mm3 (4.5-11.0) 08/08/21 18:23 RBC 5.43 M/mm3 (3.65-5.03) H 08/08/21 18:23 Hgb 13.7 gm/dl (11.8-15.2) 08/08/21 18:23 Hct 42.6 % (35.5-45.6) 08/08/21 18:23 MCV 78 fl (84-94) L 08/08/21 18:23 MCH 25 pg (28-32) L 08/08/21 18:23 MCHC 32 % (32-34) 08/08/21 18:23 RDW 15.0 % (13.2-15.2) 08/08/21 18:23 Plt Count 197 K/mm3 (140-440) 08/08/21 18:23 Sunflower % (Auto) Bo[employer] Operators Supervisor 08/08/21 18:23 Add Manual Diff Complete 08/08/21 18:23 Total Counted 100 08/08/21 18:23 Seg Neuts % (Manual) 56.0 % (40.0-70.0) 08/08/21 18:23 Lymphocytes % (Manual) 23.0 % (13.4-35.0) 08/08/21 18:23 Monocytes % (Manual) 17.0 % (0.0-7.3) H 08/08/21 18:23 Eosinophils % (Manual) 3.0 % (0.0-4.3) 08/08/21 18:23 Basophils % (Manual) 1.0 % (0.0-1.8) 08/08/21 18: Nucleated RBC % Not Reportable 08/08/21 18: Seg Neutrophils # Man 2.6 K/mm3 (1.8-7.7) 08/08/21 18: Band Neutrophils # 0.0 K/mm3 08/08/21 18: Lymphocytes # (Manual) 1.1 K/mm3 (1.2-5.4) L 08/08/21 18:23 Abs React Lymphs (Man) 0.0 K/mm3 08/08/21 18:23 Monocytes # (Manual) 0.8 K/mm3 (0.0-0.8) 08/08/21 18:23 Eosinophils # (Manual) 0.1 K/mm3 (0.0-0.4) 08/08/21 18:23 Basophils # (Manual) 0.0 K/mm3 (0.0-0.1) 08/08/21 18:23 Metamyelocytes # 0.0 K/mm3 08/08/21 18:23 Myelocytes # 0.0 K/mm3 08/08/21 18:23 Promyelocytes # 0.0 K/mm3 08/08/21 18:23 Blast Cells # 0.0 K/mm3 08/08/21 18:23 WBC Morphology Not Reportable 08/08/21 18:23 Hypersegmented Neuts Not Reportable 08/08/21 18:23 Hyposegmented Neuts Not Reportable 08/08/21 18:23 Hypogranular Neuts Not Reportable 08/08/21 18:23 Smudge Cells Not Reportable 08/08/21 18:23 Toxic Granulation Not Reportable 08/08/21 18:23 Toxic Vacuolation Not Reportable 08/08/21 18:23 Dohle Bodies Not Reportable 08/08/21 18:23 Pelger-Huet Anomaly Not Reportable 08/08/21 18:23 Mike Rods Not Reportable 08/08/21 18:23 Platelet Estimate Not Reportable 08/08/21 18:23 Clumped Platelets Not Reportable 08/08/21 18:23 Plt Clumps, EDTA Not Reportable 08/08/21 18:23 Large Platelets Not Reportable 08/08/21 18:23 Giant Platelets Not Reportable 08/08/21 18:23 Platelet Satelliting Not Reportable 08/08/21 18:23 Plt Morphology Comment Not Reportable 08/08/21 18:23 RBC Morphology Normal 08/08/21 18:23 Dimorphic RBCs Not Reportable 08/08/21 18:23 Polychromasia Not Reportable 08/08/21 18:23 Hypochromasia Not Reportable 08/08/21 18:23 Poikilocytosis Not Reportable 08/08/21 18:23 Anisocytosis Not Reportable 08/08/21 18:23 Microcytosis Not Reportable 08/08/21 18:23 Macrocytosis Not Reportable 08/08/21 18:23 Spherocytes Not Reportable 08/08/21 18:23 Pappenheimer Bodies Not Reportable 08/08/21 18:23 Sickle Cells Not Reportable 08/08/21 18:23 Target Cells Not Reportable 08/08/21 18:23 Tear Drop Cells Not Reportable 08/08/21 18:23 Ovalocytes Not Reportable 08/08/21 18:23 Helmet Cells Not Reportable 08/08/21 18:23 [place] Bodies Not Reportable 08/08/21 18:23 [place] Rings Not Reportable 08/08/21 18:23 [place] Cells Not Reportable 08/08/21 18:23 Bite Cells Not Reportable 08/08/21 18:23 Crenated Cell Not Reportable 08/08/21 18:23 Elliptocytes Not Reportable 08/08/21 18:23 Acanthocytes (Spur) Not Reportable 08/08/21 18:23 Rouleaux Not Reportable 08/08/21 18:23 Hemoglobin C Crystals Not Reportable 08/08/21 18:23 Schistocytes Not Reportable 08/08/21 18:23 Malaria parasites Not Reportable 08/08/21 18:23 Naldo Bodies Not Reportable 08/08/21 18:23 Hem Pathologist Commnt No 08/08/21 18:23 D-Dimer 1206.67 ng/mlDDU (0-234) H 08/11/21 10:03 Sodium 139 mmol/L (137-145) 08/11/21 10:03 Sodium 139 mmol/L (137-145) 08/11/21 10:03 Potassium 3.8 mmol/L (3.6-5.0) 08/11/21 10:03 Potassium 4.0 mmol/L (3.6-5.0) 08/11/21 10:03 Chloride 99.1 mmol/L (98-107) 08/11/21 10:03 Chloride 99.2 mmol/L (98-107) 08/11/21 10:03 Carbon Dioxide 27 mmol/L (22-30) D 08/11/21 10:03 Carbon Dioxide 28 mmol/L (22-30) 08/11/21 10:03 Anion Gap 16 mmol/L 08/11/21 10:03 Anion Gap 17 mmol/L 08/11/21 10:03 BUN 10 mg/dL (9-20) 08/11/21 10:03 BUN 10 mg/dL (9-20) 08/11/21 10:03 Creatinine 0.6 mg/dL (0.8-1.3) L 08/11/21 10:03 Creatinine 0.6 mg/dL (0.8-1.3) L 08/11/21 10:03 Estimated GFR > 60 ml/min 08/11/21 10:03 Estimated GFR > 60 ml/min 08/11/21 10:03 BUN/Creatinine Ratio 17 % 08/11/21 10:03 BUN/Creatinine Ratio 17 % 08/11/21 10:03 Glucose 216 mg/dL (75-100) H 08/11/21 10:03 Glucose 218 mg/dL (75-100) H 08/11/21 10:03 Calcium 8.8 mg/dL (8.4-10.2) 08/11/21 10:03 Calcium 8.8 mg/dL (8.4-10.2) 08/11/21 10:03 Magnesium 1.90 mg/dL (1.7-2.3) 08/11/21 10:03 Total Bilirubin 0.70 mg/dL (0.1-1.2) 08/11/21 10:03 AST 21 units/L (5-40) 08/11/21 10:03 ALT 14 units/L (7-56) 08/11/21 10:03 Alkaline Phosphatase 140 units/L (35-129) H 08/11/21 10:03 Lactate Dehydrogenase 221 units/L (91-180) H 08/11/21 10:03 Troponin T < 0.010 ng/mL (0.00-0.029) 08/11/21 10:03 C-Reactive Protein 1.40 mg/dL (0.00-1.30) H 08/11/21 10:03 NT-Pro-B Natriuret Pep 2435 pg/mL (0-450) H 08/11/21 10:03 Total Protein 8.2 g/dL (6.3-8.2) 08/11/21 10:03 Albumin 3.4 g/dL (3.9-5) L 08/11/21 10:03 Albumin/Globulin Ratio 0.7 % 08/11/21 10:03 Lipase 23 units/L (13-60) 08/08/21 18:23 TSH 2.950 mlU/mL (0.270-4.200) 08/11/21 10:03 Free T4 1.22 ng/dL (0.76-1.46) 08/11/21 10:03 Coronavirus (PCR) Negative (Negative) 08/09/21 08:09 [place]/IV: Voiding Method Toilet Active Medications - Current Medications Current Medications: Generic Name Dose Route Start Last Admin Trade Name Freq PRN Reason Stop Dose Admin Acetaminophen 650 mg 08/08/21 23:06 Acetaminophen 325 Mg Tab PO Q4H PRN Pain MILD(1-3)/Fever >100.5/VALVERDE Carvedilol 6.25 mg 08/10/21 22:00 08/11/21 10:18 Carvedilol 6.25 Mg Tab PO 6.25 mg BID LB Administration Furosemide 40 mg 08/09/21 18:00 08/11/21 06:22 Furosemide 40 Mg/4 Ml Inj IV 40 mg 0600,1800 LB Administration Heparin Sodium (Porcine) 5,000 unit 08/08/21 23:15 08/11/21 10:18 Heparin 5,000 Unit/1 Ml Vial SUB-Q 5,000 unit Q12HR LB Administration Sodium Chloride 500 mls @ 50 mls/hr 08/11/21 12:00 Nacl 0.9% 500 Ml IV 08/11/21 21:59 DIRECT LB Lisinopril 2.5 mg 08/09/21 22:00 08/11/21 10:18 Lisinopril 5 Mg Tab PO 2.5 mg BID LB Administration Magnesium Oxide 400 mg 08/10/21 10:00 08/11/21 10:18 Magnesium Oxide 400 Mg Tab PO 400 mg QDAY LB Administration Ondansetron HCl 4 mg 08/08/21 23:06 Ondansetron 4 Mg/2 Ml Inj IV Q8H PRN Nausea And Vomiting Potassium Chloride 20 meq 08/09/21 22:00 08/11/21 10:18 Potassium Chloride Er 20 Meq Tab PO 20 meq BID LB Administration Sodium Chloride 10 ml 08/09/21 10:00 08/11/21 10:18 Sodium Chloride 0.9% 10 Ml Flush Syringe IV 10 ml BID LB Administration Sodium Chloride 10 ml 08/08/21 23:06 Sodium Chloride 0.9% 10 Ml Flush Syringe IV PRN PRN LINE FLUSH Spironolactone 25 mg 08/09/21 16:00 08/11/21 10:18 Spironolactone 25 Mg Tab PO 25 mg QDAY LB Administration Nutrition/Malnutrition Assess - Dietary Evaluation Nutrition/Malnutrition Findings: Nutrition Notes Start: 08/11/21 14:21 Freq: Status: Active Protocol: Document 08/11/21 14:21 MERLY (Rec: 08/11/21 14:55 MERLY [id number]) Nutrition Notes Need for Assessment generated from: MD Order,Education Initial or Follow up Assessment Current Diagnosis Hypertension,Heart Failure Other Pertinent Diagnosis Cardiomyopathy, Obesity Current Diet Cardiac (since B 08/09), NPO ( from 08/13 00:01). Labs/Tests 08/11: Crea 0.6, Glu 216, LacDH 221, C-RP 1.4, AlkPhos 140, Alb 3.4. Pertinent Medications 08/11: Nutritionally unremarkable. Height 6 ft 1 in Weight 132 kg [place] Body Weight (kg) 83.63 BMI 38.4 Weight Status Obese Subjective/Other Information RD consult for Nutrition Education. Percent of energy/protein needs met: Prescribed Cardiac Diet provides for energy/protein needs (2,230 Kcal/85 g) during LOS. Burn Absent Trauma Absent GI Symptoms None Food Allergy No Skin Integrity/Comment Clear, warm, dry. Current % PO Good (75-100%) Minimum of two criteria No #1 Nutrition Diagnosis Food and nutrition-related knowledge deficit Etiology Ongoing and cocncomitant chronic metabolic conditions. As Evidenced by Signs and Symptoms Abnormal chemistry lab values, MD request for nutrition education. Is patient on ventilator? No Is Patient Ambulatory and/or Out of Bed Yes REE-([facility]-ambulatory/OOB) [ 2949.544 [id number]] Kcal/Kg value to use for calculation 17 Approximate Energy Requirements Using 2244 kcal/Kg Calculation Used for Recommendations Kcal/kg Additional Notes Protein: 1-1.2 g/Kg; 84-101 g/ day (from IBW+surgery). Fluids: 1 ml/Kcal, or as per MD. Nutrition Intervention Change Diet Order: Continue Cardiac Diet as per MD. Teaching Recipient Patient Learning Readiness Good Teaching Methods Discussion,Handout Response to Teaching Verbalize understanding Education Handouts Provided AND: Heart Failure Nutrition Therapy Barriers to Learning No Barriers RD phone number provided Yes Patient aware of follow up options Yes Goal #1 Maintain body weight within +/ -3% of current BWt during LOS. Goal #2 Reach and maintain acceptable chemistry lab values during LOS. Goal #3 Provide Pt with nutrition education to foster behavioral changes towards a healthy lifestyle. Follow-Up By: 08/19/21 Additional Comments Continue monitoring food tolerance, %PO intake of meals , Hydration, and BM.
[2021-08-12] MEDS: FUROSEMIDE 40 MG/4 ML INJ IV SCH ×2 (05:10→18:40)
[2021-08-12 08:30] LABS: Blood Urea Nitrogen 10 mg/dL (9-20); Calcium 8.9 mg/dL (8.4-10.2); Hemolysis Index 2
[2021-08-12 08:31] LABS: BUN/Creatinine Ratio 17
[2021-08-12] MEDS: INSULIN LISPRO 100 UNIT/ML SUB-Q SCH ×3 (08:39→18:40)
[2021-08-12] MEDS: INSULIN GLARGINE 100 UNITS/ML SUB-Q SCH (08:39)
--- NOTE | 2021-08-12 09:37 | Progress Note ---
Assessment and Plan Assessment and plan: 41-year-old male presents with past medical history of hypertension complains of shortness of breath x2 weeks, weight gain of about 40 pounds, increasing abdominal girth and swelling of both lower extremities. Patient was admitted with diagnosis of acute hypoxic respiratory failure secondary to newly diagnosed systolic heart failure exacerbation Acute hypoxic respiratory failure Acute systolic heart failure. EF 10 to 15% Severe cardiomyopathy. Echo: Mild LVH, mild LV enlargement, LVEF 10 to 15%, RV moderately dilated with paradoxical septal motion consistent with RV volume overload, mild biatrial enlargement, normal aortic valve, thickened mitral valve with moderate MR, severe TR, mild pulmonary hypertension Hypertension Mild pulmonary hypertension Diabetes mellitus type 2, new diagnosis Morbid obesity 08/12/2021. Continue GDMT for heart failure. Patient currently with beta-blo cker, TAMIKA inhibitor, Lasix 40 mg IV and spironolactone. Restrict oral fluid intake to 1500 mL and 2 g sodium diet. Strict I's and O's. Continue to monitor potassium and creatinine closely. Patient with LifeVest order placed and pending. Patient for cardiac catheterization tomorrow per cardiology recommendations. History Interval history: No new issues overnight. Hospitalist Physical - Constitutional Vitals: Temp Pulse Resp BP Pulse Ox 97.7 F 102 H 16 127/89 95 08/12/21 07:51 08/12/21 07:51 08/12/21 07:51 08/12/21 07:51 08/12/21 07:51 General appearance: Present: no acute distress, obese - EENT Eyes: Present: PERRL, EOM intact ENT: hearing intact, clear oral mucosa, dentition normal - Neck Neck: Present: supple, normal ROM - Respiratory Respiratory effort: normal Respiratory: bilateral: CTA - Cardiovascular Rhythm: regular Heart Sounds: Present: S1 & S2. Absent: gallop, rub - Extremities Extremities: no ischemia, No edema, Full ROM - Abdominal General gastrointestinal: soft, non-tender, non-distended, normal bowel sounds - Integumentary Integumentary: Present: clear, warm, dry - Neurologic Neurologic: CNII-XII intact, moves all extremities HEART Score - HEART Score Age: < 45 Risk factors: No known risk factors Troponin: Troponin T < 0.010 ng/mL (0.00-0.029) 08/11/21 10:03 Troponin: < normal limit - Critical Actions Critical Actions: 0-3 pts:0.9-1.7%risk of adverse cardiac event.Candidate for discharge Results - Labs CBC & Chem 7: 08/08/21 18:23 08/12/21 07:34 Labs: Laboratory Last Values WBC 4.6 K/mm3 (4.5-11.0) 08/08/21 18: RBC 5.43 M/mm3 (3.65-5.03) H 08/08/21 18: Hgb 13.7 gm/dl (11.8-15.2) 08/08/21 18: Hct 42.6 % (35.5-45.6) 08/08/21 18: MCV 78 fl (84-94) L 08/08/21 18: MCH 25 pg (28-32) L 08/08/21 18: MCHC 32 % (32-34) 08/08/21 18: RDW 15.0 % (13.2-15.2) 08/08/21 18: Plt Count 197 K/mm3 (140-440) 08/08/21 18:23 Dolores % (Auto) Commercial Retoucher 08/08/21 18:23 Add Manual Diff Complete 08/08/21 18: Total Counted 100 08/08/21 18: Seg Neuts % (Manual) 56.0 % (40.0-70.0) 08/08/21 18: Lymphocytes % (Manual) 23.0 % (13.4-35.0) 08/08/21 18: Monocytes % (Manual) 17.0 % (0.0-7.3) H 08/08/21 18: Eosinophils % (Manual) 3.0 % (0.0-4.3) 08/08/21 18: Basophils % (Manual) 1.0 % (0.0-1.8) 08/08/21 18: Nucleated RBC % Not Reportable 08/08/21 18: Seg Neutrophils # Man 2.6 K/mm3 (1.8-7.7) 08/08/21 18: Band Neutrophils # 0.0 K/mm3 08/08/21 18: Lymphocytes # (Manual) 1.1 K/mm3 (1.2-5.4) L 08/08/21 18:23 Abs React Lymphs (Man) 0.0 K/mm3 08/08/21 18:23 Monocytes # (Manual) 0.8 K/mm3 (0.0-0.8) 08/08/21 18:23 Eosinophils # (Manual) 0.1 K/mm3 (0.0-0.4) 08/08/21 18:23 Basophils # (Manual) 0.0 K/mm3 (0.0-0.1) 08/08/21 18:23 Metamyelocytes # 0.0 K/mm3 08/08/21 18:23 Myelocytes # 0.0 K/mm3 08/08/21 18:23 Promyelocytes # 0.0 K/mm3 08/08/21 18:23 Blast Cells # 0.0 K/mm3 08/08/21 18:23 WBC Morphology Not Reportable 08/08/21 18:23 Hypersegmented Neuts Not Reportable 08/08/21 18:23 Hyposegmented Neuts Not Reportable 08/08/21 18:23 Hypogranular Neuts Not Reportable 08/08/21 18:23 Smudge Cells Not Reportable 08/08/21 18:23 Toxic Granulation Not Reportable 08/08/21 18:23 Toxic Vacuolation Not Reportable 08/08/21 18:23 Dohle Bodies Not Reportable 08/08/21 18:23 Pelger-Huet Anomaly Not Reportable 08/08/21 18:23 Mike Rods Not Reportable 08/08/21 18:23 Platelet Estimate Not Reportable 08/08/21 18:23 Clumped Platelets Not Reportable 08/08/21 18:23 Plt Clumps, EDTA Not Reportable 08/08/21 18:23 Large Platelets Not Reportable 08/08/21 18:23 Giant Platelets Not Reportable 08/08/21 18:23 Platelet Satelliting Not Reportable 08/08/21 18:23 Plt Morphology Comment Not Reportable 08/08/21 18:23 RBC Morphology Normal 08/08/21 18:23 Dimorphic RBCs Not Reportable 08/08/21 18:23 Polychromasia Not Reportable 08/08/21 18:23 Hypochromasia Not Reportable 08/08/21 18:23 Poikilocytosis Not Reportable 08/08/21 18:23 Anisocytosis Not Reportable 08/08/21 18:23 Microcytosis Not Reportable 08/08/21 18:23 Macrocytosis Not Reportable 08/08/21 18:23 Spherocytes Not Reportable 08/08/21 18:23 Pappenheimer Bodies Not Reportable 08/08/21 18:23 Sickle Cells Not Reportable 08/08/21 18:23 Target Cells Not Reportable 08/08/21 18:23 Tear Drop Cells Not Reportable 08/08/21 18:23 Ovalocytes Not Reportable 08/08/21 18:23 Helmet Cells Not Reportable 08/08/21 18:23 Jasmine-[place] Bodies Not Reportable 08/08/21 18:23 [place] Rings Not Reportable 08/08/21 18:23 Froylan Cells Not Reportable 08/08/21 18:23 Bite Cells Not Reportable 08/08/21 18:23 Crenated Cell Not Reportable 08/08/21 18:23 Elliptocytes Not Reportable 08/08/21 18:23 Acanthocytes (Spur) Not Reportable 08/08/21 18:23 Rouleaux Not Reportable 08/08/21 18:23 Hemoglobin C Crystals Not Reportable 08/08/21 18:23 Schistocytes Not Reportable 08/08/21 18:23 Malaria parasites Not Reportable 08/08/21 18:23 Naldo Bodies Not Reportable 08/08/21 18:23 Hem Pathologist Commnt No 08/08/21 18:23 D-Dimer 1206.67 ng/mlDDU (0-234) H 08/11/21 10:03 Sodium 139 mmol/L (137-145) 08/12/21 07:34 Potassium 3.5 mmol/L (3.6-5.0) L 08/12/21 07:34 Chloride 100.6 mmol/L (98-107) 08/12/21 07:34 Carbon Dioxide 27 mmol/L (22-30) 08/12/21 07:34 Anion Gap 15 mmol/L 08/12/21 07:34 BUN 10 mg/dL (9-20) 08/12/21 07:34 Creatinine 0.6 mg/dL (0.8-1.3) L 08/12/21 07:34 Estimated GFR > 60 ml/min 08/12/21 07:34 BUN/Creatinine Ratio 17 % 08/12/21 07:34 Glucose 156 mg/dL (75-100) H 08/12/21 07:34 Hemoglobin A1c 10.0 % (4-6) H 08/11/21 18:41 Calcium 8.9 mg/dL (8.4-10.2) 08/12/21 07:34 Magnesium 1.90 mg/dL (1.7-2.3) 08/11/21 18:41 Total Bilirubin 0.70 mg/dL (0.1-1.2) 08/11/21 10:03 AST 21 units/L (5-40) 08/11/21 10:03 ALT 14 units/L (7-56) 08/11/21 10:03 Alkaline Phosphatase 140 units/L (35-129) H 08/11/21 10:03 Lactate Dehydrogenase 221 units/L (91-180) H 08/11/21 10:03 Troponin T < 0.010 ng/mL (0.00-0.029) 08/11/21 10:03 C-Reactive Protein 1.40 mg/dL (0.00-1.30) H 08/11/21 10:03 NT-Pro-B Natriuret Pep 2435 pg/mL (0-450) H 08/11/21 10:03 Total Protein 8.2 g/dL (6.3-8.2) 08/11/21 10:03 Albumin 3.4 g/dL (3.9-5) L 08/11/21 10:03 Albumin/Globulin Ratio 0.7 % 08/11/21 10:03 Lipase 23 units/L (13-60) 08/08/21 18:23 TSH 2.950 mlU/mL (0.270-4.200) 08/11/21 10:03 Free T4 1.22 ng/dL (0.76-1.46) 08/11/21 10:03 Coronavirus (PCR) Negative (Negative) 08/09/21 08:09 [place]/IV: Voiding Method Toilet Active Medications - Current Medications Current Medications: Generic Name Dose Route Start Last Admin Trade Name Freq PRN Reason Stop Dose Admin Acetaminophen 650 mg 08/08/21 23:06 Acetaminophen 325 Mg Tab PO Q4H PRN Pain MILD(1-3)/Fever >100.5/VALVERDE Carvedilol 6.25 mg 08/10/21 22:00 08/11/21 21:09 Carvedilol 6.25 Mg Tab PO 6.25 mg BID LB Administration Furosemide 40 mg 08/09/21 18:00 08/12/21 05:10 Furosemide 40 Mg/4 Ml Inj IV 40 mg 0600,1800 LB Administration Heparin Sodium (Porcine) 5,000 unit 08/08/21 23:15 08/11/21 21:11 Heparin 5,000 Unit/1 Ml Vial SUB-Q 5,000 unit Q12HR LB Administration Insulin Glargine 30 units 08/12/21 08:00 08/12/21 08:39 Insulin Glargine 100 Units/Ml SUB-Q Not Given QAMDIAB LB Insulin Human Lispro 5 unit 08/12/21 07:30 08/12/21 08:39 Insulin Lispro 100 Unit/Ml SUB-Q Not Given AC LB Lisinopril 2.5 mg 08/09/21 22:00 08/11/21 21:10 Lisinopril 5 Mg Tab PO 2.5 mg BID LB Administration Magnesium Oxide 400 mg 08/10/21 10:00 08/11/21 10:18 Magnesium Oxide 400 Mg Tab PO 400 mg QDAY LB Administration Ondansetron HCl 4 mg 08/08/21 23:06 Ondansetron 4 Mg/2 Ml Inj IV Q8H PRN Nausea And Vomiting Potassium Chloride 20 meq 08/09/21 22:00 08/11/21 21:11 Potassium Chloride Er 20 Meq Tab PO 20 meq BID LB Administration Sodium Chloride 10 ml 08/09/21 10:00 08/11/21 21:11 Sodium Chloride 0.9% 10 Ml Flush Syringe IV 10 ml BID LB Administration Sodium Chloride 10 ml 08/08/21 23:06 Sodium Chloride 0.9% 10 Ml Flush Syringe IV PRN PRN LINE FLUSH Spironolactone 25 mg 08/09/21 16:00 08/11/21 10:18 Spironolactone 25 Mg Tab PO 25 mg QDAY LB Administration Nutrition/Malnutrition Assess - Dietary Evaluation Nutrition/Malnutrition Findings: Nutrition Notes Start: 08/11/21 14:21 Freq: Status: Active Protocol: Document 08/11/21 14:21 MERLY (Rec: 08/11/21 14:55 MERLY [id number]) Nutrition Notes Need for Assessment generated from: MD Order,Education Initial or Follow up Assessment Current Diagnosis Hypertension,Heart Failure Other Pertinent Diagnosis Cardiomyopathy, Obesity Current Diet Cardiac (since B 08/09), NPO ( from 08/13 00:01). Labs/Tests 08/11: Crea 0.6, Glu 216, LacDH 221, C-RP 1.4, AlkPhos 140, Alb 3.4. Pertinent Medications 08/11: Nutritionally unremarkable. Height 6 ft 1 in Weight 132 kg [place] Body Weight (kg) 83.63 BMI 38.4 Weight Status Obese Subjective/Other Information RD consult for Nutrition Education. Percent of energy/protein needs met: Prescribed Cardiac Diet provides for energy/protein needs (2,230 Kcal/85 g) during LOS. Burn Absent Trauma Absent GI Symptoms None Food Allergy No Skin Integrity/Comment Clear, warm, dry. Current % PO Good (75-100%) Minimum of two criteria No #1 Nutrition Diagnosis Food and nutrition-related knowledge deficit Etiology Ongoing and cocncomitant chronic metabolic conditions. As Evidenced by Signs and Symptoms Abnormal chemistry lab values, MD request for nutrition education. Is patient on ventilator? No Is Patient Ambulatory and/or Out of Bed Yes REE-([place]-ambulatory/OOB) [ 2949.544 NUTR.[id number]] Kcal/Kg value to use for calculation 17 Approximate Energy Requirements Using 2244 kcal/Kg Calculation Used for Recommendations Kcal/kg Additional Notes Protein: 1-1.2 g/Kg; 84-101 g/ day (from IBW+surgery). Fluids: 1 ml/Kcal, or as per MD. Nutrition Intervention Change Diet Order: Continue Cardiac Diet as per MD. Teaching Recipient Patient Learning Readiness Good Teaching Methods Discussion,Handout Response to Teaching Verbalize understanding Education Handouts Provided AND: Heart Failure Nutrition Therapy Barriers to Learning No Barriers RD phone number provided Yes Patient aware of follow up options Yes Goal #1 Maintain body weight within +/ -3% of current BWt during LOS. Goal #2 Reach and maintain acceptable chemistry lab values during LOS. Goal #3 Provide Pt with nutrition education to foster behavioral changes towards a healthy lifestyle. Follow-Up By: 08/19/21 Additional Comments Continue monitoring food tolerance, %PO intake of meals , Hydration, and BM.
[2021-08-12] MEDS: MAGNESIUM OXIDE 400 MG TAB PO SCH (10:00)
[2021-08-12] MEDS: carvediloL 6.25 MG TAB PO SCH ×2 (10:00→21:30)
[2021-08-12] MEDS: HEPARIN 5,000 UNIT/1 ML VIAL SUB-Q SCH ×2 (10:00→21:31)
[2021-08-12] MEDS: LISINOPRIL 5 MG TAB PO SCH ×2 (10:00→21:29)
[2021-08-12] MEDS: POTASSIUM CHLORIDE ER 20 MEQ TAB PO SCH ×2 (10:00→21:31)
[2021-08-12] MEDS: SPIRONOLACTONE 25 MG TAB PO SCH (10:00)
--- NOTE | 2021-08-12 10:47 | Progress Note ---
Assessment and Plan ECHO 08/08/21: Mild left ventricular hypertrophy, EF 10 to 15%, mild RVE, septal flattening, RVSP 40 mmHg, severe tricuspid regurgitation, moderate mitral regurgitation Acute HFrEF 10-15% Cardiomyopathy Hypertension Noncompliance secondary to financial issues/no insurance Continue IV diuresis Strict I's and O's Monitor potassium and creatinine closely Continue carvedilol Due to severely decreased EF order for LifeVest placed Cardiac cath tomorrow morning. NPO aftermidnight Patient seen in conjunction with Dr. Arellano who agrees with this plan of care. We will continue to follow - Patient Problems (1) Cardiomyopathy Current Visit: Yes Status: Acute (2) Acute exacerbation of CHF (congestive heart failure) Current Visit: Yes Status: Acute Qualifiers: Heart failure type: combined systolic and diastolic Qualified Code(s): I50.43 - Acute on chronic combined systolic (congestive) and diastolic (congestive) heart failure (3) HTN (hypertension) Current Visit: Yes Status: Acute Qualifiers: Hypertension type: primary hypertension Qualified Code(s): I10 - Essential (primary) hypertension (4) New onset of congestive heart failure Current Visit: Yes Status: Acute Subjective Date of service: 08/12/21 Principal diagnosis: new onset HFrEF Interval history: Patient sitting in bed. Reports feeling well and states still having good urine output. Patient is in no acute distress. Sinus tach 102 on monitor Objective Vital Signs Temp Pulse Resp BP Pulse Ox 08/12/21 07:51 97.7 F 102 H 16 127/89 95 08/12/21 03:10 97.5 F L 107 H 16 117/78 93 08/12/21 00:04 98.2 F 102 H 16 125/70 97 08/11/21 23:06 104 H 08/11/21 23:02 98 08/11/21 21:10 101 H 129/92 08/11/21 21:09 101 H 129/92 08/11/21 19:38 98.1 F 101 H 18 129/92 96 08/11/21 16:07 98.1 F 102 H 18 122/90 95 08/11/21 11:27 98.4 F 101 H 18 123/82 95 - Physical Examination General: No Apparent Distress HEENT: Positive: PERRL, EOMI Neck: Positive: trachea midline Cardiac: Positive: Regular Rhythm, Tachycardia Lungs: Positive: Normal Breath Sounds Neuro: Positive: Grossly Intact Abdomen: Positive: Unremarkable, Soft, Active Bowel Sounds Skin: Negative: Rash Extremities: Present: upper extr. pulses, edema, warm - Labs and Meds Cardiac Enzymes 08/11/21 Range/Units 10:03 AST 21 (5-40) units/L Comprehensive Metabolic Panel 08/11/21 08/11/21 08/12/21 Range/Units 10:03 10:03 07:34 Sodium 139 139 139 (137-145) mmol/L Potassium 3.8 4.0 3.5 L (3.6-5.0) mmol/L Chloride 99.2 99.1 100.6 (98-107) mmol/L Carbon Dioxide 27 D 28 27 (22-30) mmol/L BUN 10 10 10 (9-20) mg/dL Creatinine 0.6 L 0.6 L 0.6 L (0.8-1.3) mg/dL Glucose 218 H 216 H 156 H (75-100) mg/dL Calcium 8.8 8.8 8.9 (8.4-10.2) mg/dL AST 21 (5-40) units/L ALT 14 (7-56) units/L Alkaline Phosphatase 140 H (35-129) units/L Total Protein 8.2 (6.3-8.2) g/dL Albumin 3.4 L (3.9-5) g/dL - Imaging and Cardiology EKG: report reviewed (Sinus tachycardia) Echo: report reviewed - Telemetry EKG Rhythm: Sinus Tachycardia - EKG Sinus rhythms and dysrhythmias: sinus tachycardia
--- NOTE | 2021-08-12 13:18 | XRay Report ---
CHEST 1 VIEW INDICATION: elevated d-dimer. COMPARISON: None FINDINGS: Support devices: None. Heart: Borderline to mild cardiomegaly. Lungs/Pleura: The lungs are generally clear with no evidence for infiltrate, pleural fluid or pneumot horax. Additional findings: None. IMPRESSION: Borderline to mild cardiomegaly. Lungs clear. NUCLEAR MEDICINE PERFUSION SCAN INDICATION: Shortness of breath, elevated d-dimer CORRELATION: AP chest performed the same day RADIOPHARMACEUTICAL: Perfusion: 5.1 mCi Tc-99m MAA given IV FINDINGS: Perfusion images show symmetric and uniform radiotracer distribution throughout bilateral lung zones with no evidence of unmatched segmental perfusion defects. Normal cardiac silhouette. IMPRESSION: Low probability perfusion scan for pulmonary embolism. Signer Name: Chas Finn Jr, MD Signed: 08/12/2021 1:13 PM Workstation Name: [id number]
[2021-08-13] MEDS: FUROSEMIDE 40 MG/4 ML INJ IV SCH (05:08)
[2021-08-13 05:56] LABS: Hematocrit 43.6 % (35.5-45.6); Hemoglobin 13.9 gm/dl (11.8-15.2); Mean Corpuscular HGB Conc 32 % (32-34); Mean Corpuscular Volume 79 fl (84-94); Platelet Count 208 K/mm3 (140-440); Red Blood Count 5.52 M/mm3 (3.65-5.03); Red Cell Distribution Width 15.1 % (13.2-15.2)
[2021-08-13 06:04] LABS: INR 1.05 (0.87-1.13)
[2021-08-13 06:17] LABS: Blood Urea Nitrogen 11 mg/dL (9-20); Calcium 9.2 mg/dL (8.4-10.2); Hemolysis Index 5
[2021-08-13 06:28] LABS: BUN/Creatinine Ratio 16
[2021-08-13 06:55] LABS: Total Cells Counted 100
[2021-08-13 06:56] LABS: Platelet Estimate Consistent w Auto; RBC Morphology Normal
[2021-08-13] MEDS: INSULIN LISPRO 100 UNIT/ML SUB-Q SCH ×2 (08:00→11:58)
[2021-08-13] MEDS ORDERED: HEPARIN/NS 5000 UNIT/500ML 1,000 ML IR ONE (08:19)
[2021-08-13] MEDS ORDERED: LIDOCAINE (2%) 20 MG/1 ML VIAL 20 ML MDV INFILTRATI ONE ×2 (08:19→09:40)
[2021-08-13] MEDS ORDERED: NITROGLYCERIN SYRINGE 3 ML ONE (08:21)
[2021-08-13] MEDS ORDERED: ASPIRIN 81 MG TAB CHEW ONE (08:36)
[2021-08-13] MEDS ORDERED: SODIUM CHLORIDE 0.9% 1000 ML 1,000 ML ONE (08:58)
--- NOTE | 2021-08-13 09:04 | Progress Note ---
Assessment and Plan Assessment and plan: 41-year-old male presents with past medical history of hypertension complains of shortness of breath x2 weeks, weight gain of about 40 pounds, increasing abdominal girth and swelling of both lower extremities. Patient was admitted with diagnosis of acute hypoxic respiratory failure secondary to newly diagnosed systolic heart failure exacerbation Acute hypoxic respiratory failure Acute systolic heart failure. EF 10 to 15% Severe cardiomyopathy. Echo: Mild LVH, mild LV enlargement, LVEF 10 to 15%, RV moderately dilated with paradoxical septal motion consistent with RV volume overload, mild biatrial enlargement, normal aortic valve, thickened mitral valve with moderate MR, severe TR, mild pulmonary hypertension Hypertension Mild pulmonary hypertension Diabetes mellitus type 2, new diagnosis Morbid obesity 08/12/2021. Continue GDMT for heart failure. Patient currently with beta-blo cker, TAMIKA inhibitor, Lasix 40 mg IV and spironolactone. Restrict oral fluid intake to 1500 mL and 2 g sodium diet. Strict I's and O's. Continue to monitor potassium and creatinine closely. Patient with LifeVest order placed and pending. Patient for cardiac catheterization tomorrow per cardiology recommendations. 08/13/2021.Continue GDMT for heart failure. Patient currently with beta-roger , TAMIKA inhibitor, Lasix 40 mg IV and spironolactone. Restrict oral fluid intake to 1500 mL and 2 g sodium diet. Strict I's and O's. Continue to monitor potassium and creatinine closely. Patient for cardiac catheterization today. Await LifeVest. Patient also newly diagnosed DM. Dietitian education. Continue tight glycemic control History Interval history: No new issues overnight. Hospitalist Physical - Constitutional Vitals: Temp Pulse Resp BP Pulse Ox 97.8 F 100 H 25 H 117/85 96 08/13/21 08:45 08/13/21 08:45 08/13/21 08:45 08/13/21 08:45 08/13/21 08:45 General appearance: Present: no acute distress, obese - EENT Eyes: Present: PERRL, EOM intact ENT: hearing intact, clear oral mucosa, dentition normal - Neck Neck: Present: supple, normal ROM - Respiratory Respiratory effort: normal Respiratory: bilateral: CTA - Cardiovascular Rhythm: regular Heart Sounds: Present: S1 & S2. Absent: gallop, rub - Extremities Extremities: no ischemia, No edema, Full ROM - Abdominal General gastrointestinal: soft, non-tender, non-distended, normal bowel sounds - Integumentary Integumentary: Present: clear, warm, dry - Neurologic Neurologic: CNII-XII intact, moves all extremities HEART Score - HEART Score Age: < 45 Risk factors: No known risk factors Troponin: Troponin T < 0.010 ng/mL (0.00-0.029) 08/11/21 10:03 Troponin: < normal limit - Critical Actions Critical Actions: 0-3 pts:0.9-1.7%risk of adverse cardiac event.Candidate for discharge Results - Labs CBC & Chem 7: 08/13/21 05:25 08/13/21 05:25 Labs: Laboratory Last Values WBC 4.2 K/mm3 (4.5-11.0) L 08/13/21 05:25 RBC 5.52 M/mm3 (3.65-5.03) H 08/13/21 05:25 Hgb 13.9 gm/dl (11.8-15.2) 08/13/21 05:25 Hct 43.6 % (35.5-45.6) 08/13/21 05:25 MCV 79 fl (84-94) L 08/13/21 05:25 MCH 25 pg (28-32) L 08/13/21 05:25 MCHC 32 % (32-34) 08/13/21 05:25 RDW 15.1 % (13.2-15.2) 08/13/21 05:25 Plt Count 208 K/mm3 (140-440) 08/13/21 05:25 Evangeline % (Auto) Fmd Teacher 08/13/21 05:25 Add Manual Diff Complete 08/13/21 05:25 Total Counted 100 08/13/21 05:25 Seg Neuts % (Manual) 47.0 % (40.0-70.0) 08/13/21 05:25 Lymphocytes % (Manual) 33.0 % (13.4-35.0) 08/13/21 05:25 Monocytes % (Manual) 13.0 % (0.0-7.3) H 08/13/21 05:25 Eosinophils % (Manual) 7.0 % (0.0-4.3) H 08/13/21 05:25 Basophils % (Manual) 1.0 % (0.0-1.8) 08/08/21 18:23 Nucleated RBC % Not Reportable 08/13/21 05:25 Seg Neutrophils # Man 2.0 K/mm3 (1.8-7.7) 08/13/21 05:25 Band Neutrophils # 0.0 K/mm3 08/13/21 05:25 Lymphocytes # (Manual) 1.4 K/mm3 (1.2-5.4) 08/13/21 05:25 Abs React Lymphs (Man) 0.0 K/mm3 08/13/21 05:25 Monocytes # (Manual) 0.5 K/mm3 (0.0-0.8) 08/13/21 05:25 Eosinophils # (Manual) 0.3 K/mm3 (0.0-0.4) 08/13/21 05:25 Basophils # (Manual) 0.0 K/mm3 (0.0-0.1) 08/13/21 05:25 Metamyelocytes # 0.0 K/mm3 08/13/21 05:25 Myelocytes # 0.0 K/mm3 08/13/21 05:25 Promyelocytes # 0.0 K/mm3 08/13/21 05:25 Blast Cells # 0.0 K/mm3 08/13/21 05:25 WBC Morphology Not Reportable 08/13/21 05:25 Hypersegmented Neuts Not Reportable 08/13/21 05:25 Hyposegmented Neuts Not Reportable 08/13/21 05:25 Hypogranular Neuts Not Reportable 08/13/21 05:25 Smudge Cells Not Reportable 08/13/21 05:25 Toxic Granulation Not Reportable 08/13/21 05:25 Toxic Vacuolation Not Reportable 08/13/21 05:25 Dohle Bodies Not Reportable 08/13/21 05:25 Pelger-Huet Anomaly Not Reportable 08/13/21 05:25 Mike Rods Not Reportable 08/13/21 05:25 Platelet Estimate Consistent w auto 08/13/21 05:25 Clumped Platelets Not Reportable 08/13/21 05:25 Plt Clumps, EDTA Not Reportable 08/13/21 05:25 Large Platelets Not Reportable 08/13/21 05:25 Giant Platelets Not Reportable 08/13/21 05:25 Platelet Satelliting Not Reportable 08/13/21 05:25 Plt Morphology Comment Not Reportable 08/13/21 05:25 RBC Morphology Normal 08/13/21 05:25 Dimorphic RBCs Not Reportable 08/13/21 05:25 Polychromasia Not Reportable 08/13/21 05:25 Hypochromasia Not Reportable 08/13/21 05:25 Poikilocytosis Not Reportable 08/13/21 05:25 Anisocytosis Not Reportable 08/13/21 05:25 Microcytosis Not Reportable 08/13/21 05:25 Macrocytosis Not Reportable 08/13/21 05:25 Spherocytes Not Reportable 08/13/21 05:25 Pappenheimer Bodies Not Reportable 08/13/21 05:25 Sickle Cells Not Reportable 08/13/21 05:25 Target Cells Not Reportable 08/13/21 05:25 Tear Drop Cells Not Reportable 08/13/21 05:25 Ovalocytes Not Reportable 08/13/21 05:25 Helmet Cells Not Reportable 08/13/21 05:25 Jasmine-Kirvin Bodies Not Reportable 08/13/21 05:25 Sparks Rings Not Reportable 08/13/21 05:25 Garfield Cells Not Reportable 08/13/21 05:25 Bite Cells Not Reportable 08/13/21 05:25 Crenated Cell Not Reportable 08/13/21 05:25 Elliptocytes Not Reportable 08/13/21 05:25 Acanthocytes (Spur) Not Reportable 08/13/21 05:25 Rouleaux Not Reportable 08/13/21 05:25 Hemoglobin C Crystals Not Reportable 08/13/21 05:25 Schistocytes Not Reportable 08/13/21 05:25 Malaria parasites Not Reportable 08/13/21 05:25 Naldo Bodies Not Reportable 08/13/21 05:25 Hem Pathologist Commnt No 08/13/21 05:25 PT 14.8 Sec. (12.2-14.9) 08/13/21 05:25 INR 1.05 (0.87-1.13) 08/13/21 05:25 D-Dimer 1206.67 ng/mlDDU (0-234) H 08/11/21 10:03 Sodium 145 mmol/L (137-145) 08/13/21 05:25 Potassium 3.7 mmol/L (3.6-5.0) 08/13/21 05:25 Chloride 103.6 mmol/L (98-107) 08/13/21 05:25 Carbon Dioxide 28 mmol/L (22-30) 08/13/21 05:25 Anion Gap 17 mmol/L 08/13/21 05:25 BUN 11 mg/dL (9-20) 08/13/21 05:25 Creatinine 0.7 mg/dL (0.8-1.3) L 08/13/21 05:25 Estimated GFR > 60 ml/min 08/13/21 05:25 BUN/Creatinine Ratio 16 % 08/13/21 05:25 Glucose 139 mg/dL (75-100) H 08/13/21 05:25 POC Glucose 129 mg/dL (70-105) H 08/13/21 05:15 Hemoglobin A1c 10.0 % (4-6) H 08/11/21 18:41 Calcium 9.2 mg/dL (8.4-10.2) 08/13/21 05:25 Magnesium 1.90 mg/dL (1.7-2.3) 08/12/21 14:23 Total Bilirubin 0.70 mg/dL (0.1-1.2) 08/11/21 10:03 AST 21 units/L (5-40) 08/11/21 10:03 ALT 14 units/L (7-56) 08/11/21 10:03 Alkaline Phosphatase 140 units/L (35-129) H 08/11/21 10:03 Lactate Dehydrogenase 221 units/L (91-180) H 08/11/21 10:03 Troponin T < 0.010 ng/mL (0.00-0.029) 08/11/21 10:03 C-Reactive Protein 1.40 mg/dL (0.00-1.30) H 08/11/21 10:03 NT-Pro-B Natriuret Pep 2435 pg/mL (0-450) H 08/11/21 10:03 Total Protein 8.2 g/dL (6.3-8.2) 08/11/21 10:03 Albumin 3.4 g/dL (3.9-5) L 08/11/21 10:03 Albumin/Globulin Ratio 0.7 % 08/11/21 10:03 Lipase 23 units/L (13-60) 08/08/21 18:23 TSH 2.950 mlU/mL (0.270-4.200) 08/11/21 10:03 Free T4 1.22 ng/dL (0.76-1.46) 08/11/21 10:03 Coronavirus (PCR) Negative (Negative) 08/09/21 08:09 [place]/IV: Voiding Method Toilet Active Medications - Current Medications Current Medications: Generic Name Dose Route Start Last Admin Trade Name Freq PRN Reason Stop Dose Admin Acetaminophen 650 mg 08/08/21 23:06 Acetaminophen 325 Mg Tab PO Q4H PRN Pain MILD(1-3)/Fever >100.5/VALVERDE Carvedilol 6.25 mg 08/10/21 22:00 08/12/21 21:30 Carvedilol 6.25 Mg Tab PO 6.25 mg BID LB Administration Furosemide 40 mg 08/09/21 18:00 08/13/21 05:08 Furosemide 40 Mg/4 Ml Inj IV 40 mg 0600,1800 LB Administration Heparin Sodium (Porcine) 5,000 unit 08/08/21 23:15 08/12/21 21:31 Heparin 5,000 Unit/1 Ml Vial SUB-Q 5,000 unit Q12HR LB Administration Insulin Glargine 30 units 08/12/21 08:00 08/12/21 08:39 Insulin Glargine 100 Units/Ml SUB-Q Not Given QAMDIAB LB Insulin Human Lispro 5 unit 08/12/21 07:30 08/12/21 18:40 Insulin Lispro 100 Unit/Ml SUB-Q Not Given AC [facility] Lisinopril 2.5 mg 08/09/21 22:00 08/12/21 21:29 Lisinopril 5 Mg Tab PO 2.5 mg BID LB Administration Magnesium Oxide 400 mg 08/10/21 10:00 08/12/21 10:00 Magnesium Oxide 400 Mg Tab PO 400 mg QDAY LB Administration Ondansetron HCl 4 mg 08/08/21 23:06 Ondansetron 4 Mg/2 Ml Inj IV Q8H PRN Nausea And Vomiting Potassium Chloride 20 meq 08/09/21 22:00 08/12/21 21:31 Potassium Chloride Er 20 Meq Tab PO 20 meq BID LB Administration Sodium Chloride 10 ml 08/09/21 10:00 08/12/21 21:29 Sodium Chloride 0.9% 10 Ml Flush Syringe IV 10 ml BID LB Administration Sodium Chloride 10 ml 08/08/21 23:06 Sodium Chloride 0.9% 10 Ml Flush Syringe IV PRN PRN LINE FLUSH Spironolactone 25 mg 08/09/21 16:00 08/12/21 10:00 Spironolactone 25 Mg Tab PO 25 mg QDAY LB Administration Nutrition/Malnutrition Assess - Dietary Evaluation Nutrition/Malnutrition Findings: Nutrition Notes Start: 08/11/21 14:21 Freq: Status: Active Protocol: Document 08/11/21 14:21 MERLY (Rec: 08/11/21 14:55 MERLY [id number]) Nutrition Notes Need for Assessment generated from: MD Order,Education Initial or Follow up Assessment Current Diagnosis Hypertension,Heart Failure Other Pertinent Diagnosis Cardiomyopathy, Obesity Current Diet Cardiac (since B 08/09), NPO ( from 08/13 00:01). Labs/Tests 08/11: Crea 0.6, Glu 216, LacDH 221, C-RP 1.4, AlkPhos 140, Alb 3.4. Pertinent Medications 08/11: Nutritionally unremarkable. Height 6 ft 1 in Weight 132 kg Mozelle Body Weight (kg) 83.63 BMI 38.4 Weight Status Obese Subjective/Other Information RD consult for Nutrition Education. Percent of energy/protein needs met: Prescribed Cardiac Diet provides for energy/protein needs (2,230 Kcal/85 g) during LOS. Burn Absent Trauma Absent GI Symptoms None Food Allergy No Skin Integrity/Comment Clear, warm, dry. Current % PO Good (75-100%) Minimum of two criteria No #1 Nutrition Diagnosis Food and nutrition-related knowledge deficit Etiology Ongoing and cocncomitant chronic metabolic conditions. As Evidenced by Signs and Symptoms Abnormal chemistry lab values, MD request for nutrition education. Is patient on ventilator? No Is Patient Ambulatory and/or Out of Bed Yes REE-([facility]-ambulatory/OOB) [ 2949.544 NUTR.MSJOOB] Kcal/Kg value to use for calculation 17 Approximate Energy Requirements Using 2244 kcal/Kg Calculation Used for Recommendations Kcal/kg Additional Notes Protein: 1-1.2 g/Kg; 84-101 g/ day (from IBW+surgery). Fluids: 1 ml/Kcal, or as per MD. Nutrition Intervention Change Diet Order: Continue Cardiac Diet as per MD. Teaching Recipient Patient Learning Readiness Good Teaching Methods Discussion,Handout Response to Teaching Verbalize understanding Education Handouts Provided AND: Heart Failure Nutrition Therapy Barriers to Learning No Barriers RD phone number provided Yes Patient aware of follow up options Yes Goal #1 Maintain body weight within +/ -3% of current BWt during LOS. Goal #2 Reach and maintain acceptable chemistry lab values during LOS. Goal #3 Provide Pt with nutrition education to foster behavioral changes towards a healthy lifestyle. Follow-Up By: 08/19/21 Additional Comments Continue monitoring food tolerance, %PO intake of meals , Hydration, and BM.
[2021-08-13] MEDS ORDERED: fentaNYL 100 MCG/2 ML INJ ONE (09:07)
[2021-08-13] MEDS ORDERED: MIDAZOLAM 2 MG/2 ML INJ ONE (09:07)
[2021-08-13] MEDS: VERAPAMIL 5 MG/2 ML INJ ONE ×2 (09:21→09:41)
[2021-08-13] MEDS ORDERED: NITROGLYCERIN 600 MCG/3 ML SYRINGE UD ONE ×2 (09:21→09:41)
[2021-08-13] MEDS: HEPARIN 10,000 UNITS/10 ML VIAL ONE ×2 (09:22→09:41)
[2021-08-13] MEDS ORDERED: fentaNYL 100 MCG/2 ML INJ IV ONE (09:39)
[2021-08-13] MEDS ORDERED: MIDAZOLAM 2 MG/2 ML INJ IV ONE (09:39)
[2021-08-13] MEDS: HEPARIN 5,000 UNIT/1 ML VIAL SUB-Q SCH (10:00)
--- NOTE | 2021-08-13 10:23 | Discharge Summary ---
Providers - Providers Date of Admission: 08/09/21 11:00 Date of discharge: 08/13/21 Attending physician: PADMINI MCCRARY 08/09/21 15:40 Consult to Cardiology [CONS] Routine Consulting Provider: ELIZABETH ANDREWS Reason For Exam: Newly diagnosed severe systolic heart failure 08/11/21 13:42 Consult to Dietitian/Nutrition [CONS] Routine Physician Instructions: Reason For Exam: heart failure diet education Reason for Consult: Diet education Primary care physician: BOTTOM TURNER Hospitalization Reason for admission: SOB Condition: Fair Hospital course: 41-year-old male presents with past medical history of hypertension complains of shortness of breath x2 weeks, weight gain of about 40 pounds, increasing abdominal girth and swelling of both lower extremities. Patient was admitted with diagnosis of acute hypoxic respiratory failure secondary to newly diagnosed systolic heart failure exacerbation, hypertension, morbid obesity. Echo: Mild LVH, mild LV enlargement, LVEF 10 to 15%, RV moderately dilated with paradoxical septal motion consistent with RV volume overload, mild biatrial enlargement, normal aortic valve, thickened mitral valve with moderate MR, severe TR, mild pulmonary hypertension Hospital course: 08/10/2021. BNP 2792, unremarkable CBC and CMP. Moderate cardiomegaly on chest x-ray but no pulmonary edema. EKG: Sinus tach 113, loss of R in V2 and V3. Initiated heart failure regimen as tolerated Lasix 40 mg IV twice daily Beta-roger, ACEI, spironolactone Monitor renal function and electrolytes, 08/11/2021. Patient gives no history of diabetes, blood glucose noted to be elevated, A1c found to be 10 Ordered nurses to provide diabetes education and Accu-Cheks Start Lantus 30 units every morning and Humalog 5 units AC COVID-19 test negative by PCR 08/12/2021. Continue GDMT for heart failure. Patient currently with beta- roger, TAMIKA inhibitor, Lasix 40 mg IV and spironolactone. Restrict oral fluid intake to 1500 mL and 2 g sodium diet. Strict I's and O's. Continue to monitor potassium and creatinine closely. Patient with LifeVest order placed and pending. Patient for cardiac catheterization tomorrow per cardiology recommendations. 08/13/2021.Continue GDMT for heart failure. Patient currently with beta- roger, TAMKIA inhibitor, Lasix 40 mg and spironolactone. Restrict oral fluid intake to 1500 mL and 2 g sodium diet. Strict I's and O's. Continue to monitor potassium and creatinine closely. Patient for cardiac catheterization today that showed no blockages per cardiology. Patient received LifeVest. Patient also newly diagnosed DM and received diet education. Cardiology felt that the patient could discharge home. Dedicated discharge time 32 minutes Disposition: HOME / SELF CARE / HOMELESS Final Discharge Diagnosis (Prints w/discharge instructions): acute hypoxic respiratory failure secondary to newly diagnosed systolic heart failure exacerbation, hypertension, morbid obesity, severe cardiomyopathy, diabetes mellitus type 2 new diagnosis. Core Measure Documentation - Palliative Care Palliative Care/ Comfort Measures: Not Applicable - Core Measures Any of the following diagnoses?: heart failure - Heart Failure Discharge Requirements TAMIKA/ARB for LVSD if EF <40%: Yes Beta roger at discharge: Yes Exam - Constitutional Vitals: Temp Pulse Resp BP Pulse Ox 97.8 F 100 H 25 H 117/85 96 08/13/21 08:45 08/13/21 08:45 08/13/21 08:45 08/13/21 08:45 08/13/21 08:45 General appearance: Present: no acute distress, well-nourished - EENT Eyes: Present: PERRL ENT: hearing intact, clear oral mucosa - Neck Neck: Present: supple, normal ROM - Respiratory Respiratory effort: normal Respiratory: bilateral: CTA - Cardiovascular Heart Sounds: Present: S1 & S2. Absent: rub, click - Extremities Extremities: pulses symmetrical, No edema Peripheral Pulses: within normal limits - Abdominal General gastrointestinal: Present: soft, non-tender, non-distended, normal bowel sounds Male genitourinary: Present: normal - Integumentary Integumentary: Present: clear, warm, dry - Musculoskeletal Musculoskeletal: gait normal, strength equal bilaterally - Psychiatric Psychiatric: appropriate mood/affect, intact judgment & insight - Neurologic Neurologic: CNII-XII intact, moves all extremities Plan Activity: advance as tolerated Weight Bearing Status: Weight Bear as Tolerated Diet: diabetic Follow up with: PRIMARY MD NADEEM [Primary Care Provider] - 7 Days ELIZABETH ANDREWS MD [Staff Physician] - 7 Days ROSY TOM MD [Staff Physician] - 7 Days Prescriptions: Spironolactone [Aldactone] 25 mg PO QDAY #30 tablet carvediloL [Coreg] 6.25 mg PO BID #60 tablet Lispro Insulin [HumaLOG] 5 unit SUB-Q AC 30 Days units Potassium Chloride [K-Dur] 20 meq PO BID #60 tablet Insulin Glargine [Lantus VIAL] 30 units SUB-Q QAMDIAB 30 Days units Furosemide [Lasix TAB] 40 mg PO BID #60 tablet Multivitamin 1 each PO QDAY #30 Cholecalciferol Vit D3 [Vitamin D3 1,000 UNIT TAB] 1,000 unit PO QDAY #30 lisinopriL [Zestril TAB] 2.5 mg PO BID #60 tablet
[2021-08-13] MEDS: LISINOPRIL 5 MG TAB PO SCH (10:58)
[2021-08-13] MEDS: carvediloL 6.25 MG TAB PO SCH (10:58)
[2021-08-13] MEDS: MAGNESIUM OXIDE 400 MG TAB PO SCH (10:58)
[2021-08-13] MEDS: SPIRONOLACTONE 25 MG TAB PO SCH (10:58)
[2021-08-13] MEDS: POTASSIUM CHLORIDE ER 20 MEQ TAB PO SCH (10:58)
[2021-08-13] MEDS: INSULIN GLARGINE 100 UNITS/ML SUB-Q SCH (11:15)
[2021-08-13 12:19] VITALS: BP 99/73
--- NOTE | 2021-08-13 12:36 | Progress Note ---
Assessment and Plan ECHO 08/08/21: Mild left ventricular hypertrophy, EF 10 to 15%, mild RVE, septal flattening, RVSP 40 mmHg, severe tricuspid regurgitation, moderate mitral regurgitation C 08/13/2021-no evidence of significant epicardial coronary artery disease. Mildly dilated and severely globally hypokinetic left ventricle. Estimated EF 20 to 25%. Acute HFrEF 10-15% Cardiomyopathy Hypertension Noncompliance secondary to financial issues/no insurance Patient had cardiac cath this a.m. Convert to Lasix 40 mg p.o. daily Continue carvedilol, lisinopril and Aldactone Patient LifeVest has been delivered. Patient currently wearing. Patient understands the importance of wearing LifeVest and compliance Patient cardiac status is stable for discharge Patient has a follow-up appoint with Dr. Crisostomo, [facility] data storage specialist, on 08/25/2021 at 10 AM at our [place] location. Phone #[phone] Patient will be set up with the appointment at the [place] [facility]. Our office will reach out next week to establish an appointment. Patient seen in conjunction with Dr. Arellano who agrees with this plan of care. - Patient Problems (1) Cardiomyopathy Current Visit: Yes Status: Acute (2) Acute exacerbation of CHF (congestive heart failure) Current Visit: Yes Status: Acute Qualifiers: Heart failure type: combined systolic and diastolic Qualified Code(s): I50.43 - Acute on chronic combined systolic (congestive) and diastolic (congestive) heart failure (3) HTN (hypertension) Current Visit: Yes Status: Acute Qualifiers: Hypertension type: primary hypertension Qualified Code(s): I10 - Essential (primary) hypertension (4) New onset of congestive heart failure Current Visit: Yes Status: Acute Subjective Date of service: 08/13/21 Principal diagnosis: new onset HFrEF Interval history: Patient for cardiac cath this a.m. Sinus 97 on monitor with no events Objective Vital Signs Temp Pulse Resp BP BP Pulse Ox 08/13/21 11:48 98.6 F 97 H 18 99/73 95 08/13/21 08:45 97.8 F 100 H 25 H 117/85 96 08/13/21 08:00 98 H 100 08/13/21 07:41 97.9 F 98 H 18 119/74 96 08/13/21 03:41 98.2 F 95 H 18 126/81 96 08/12/21 23:40 97.7 F 75 16 120/82 98 08/12/21 23:00 98 08/12/21 22:00 106 H 08/12/21 21:30 105 H 130/94 08/12/21 21:29 105 H 130/94 08/12/21 19:33 98.1 F 105 H 18 130/94 97 - Physical Examination General: No Apparent Distress HEENT: Positive: PERRL, EOMI Neck: Positive: trachea midline Cardiac: Positive: Reg Rate and Rhythm Lungs: Positive: Normal Breath Sounds Neuro: Positive: Grossly Intact Abdomen: Positive: Unremarkable, Soft, Active Bowel Sounds Skin: Negative: Rash Extremities: Present: upper extr. pulses, edema, warm - Labs and Meds Coagulation 08/13/21 Range/Units 05:25 PT 14.8 (12.2-14.9) Sec. INR 1.05 (0.87-1.13) CBC 08/13/21 Range/Units 05:25 WBC 4.2 L (4.5-11.0) K/mm3 RBC 5.52 H (3.65-5.03) M/mm3 Hgb 13.9 (11.8-15.2) gm/dl Hct 43.6 (35.5-45.6) % Plt Count 208 (140-440) K/mm3 Comprehensive Metabolic Panel 08/13/21 Range/Units 05:25 Sodium 145 (137-145) mmol/L Potassium 3.7 (3.6-5.0) mmol/L Chloride 103.6 (98-107) mmol/L Carbon Dioxide 28 (22-30) mmol/L BUN 11 (9-20) mg/dL Creatinine 0.7 L (0.8-1.3) mg/dL Glucose 139 H (75-100) mg/dL Calcium 9.2 (8.4-10.2) mg/dL - Imaging and Cardiology EKG: report reviewed (Sinus tachycardia) Echo: report reviewed - Telemetry EKG Rhythm: Sinus Rhythm - EKG Sinus rhythms and dysrhythmias: sinus rhythm
--- NOTE | 2021-08-13 14:29 | Cardiac Catherization Report ---
CARDIAC CATHETERIZATION REFERRING PHYSICIAN: Hospitalist service. INDICATIONS FOR PROCEDURE: The patient is a very pleasant 41-year-old -[place] gentleman with a history of severe cardiomyopathy, referred here for left heart catheterization to determine the etiology. Risks, benefits and alternatives discussed at length prior to obtaining informed consent. PROCEDURE IN DETAIL: The patient was brought to the terrazzo laborer in a postabsorptive state, prepped and draped in sterile fashion. Billy's test in right hand was normal. 2 mL of 2% lidocaine used to anesthetize the right wrist. A standard 6-[place] hydrophilic sheath used to cannulate the right radial artery via modified Seldinger technique. All exchanges performed to exchange a J-tip guidewire. JL3.5 catheter used to engage the left main. No dampening or ventricularization. Cineangiography performed in all projections. JR4 catheter used to cross the aortic valve under fluoroscopic guidance. Left ventriculography performed in 30-degree ____ projections via hand injections, catheter flushed. Manual pullback performed with continuous pressure monitoring. Catheter used to engage the right coronary. No dampening or ventricularization. Cineangiography performed in all projections. Next, catheter removed from the body over a wire, sheath removed. Manual pressure used to achieve hemostasis. I directly supervised the administration of moderate sedation with fentanyl and Versed from 9:20 a.m. to 9:55 a.m. No immediate complications. DATA: Aortic pressure is 105/80, LV pressure is 105, LVEDP of 15 mmHg. Left ventriculography reveals severe global left ventricular hypokinesis with estimated ejection fraction of 20-25%. No evidence of aortic stenosis. Normal LVEDP. CORONARY ANATOMY: There is a strongly right dominant system. Left main is without significant disease, bifurcates into left anterior descending and left circumflex. Left circumflex is a moderate-sized vessel, courses AV groove. No significant disease. LAD is a moderate-sized vessel, courses anterior intergroove, wraps around the apex. No significant disease in LAD or diagonal system. Right coronary is a large vessel, courses AV groove, distally bifurcates into posterior and posterolateral branches. No discrete stenoses noted. CONCLUSIONS: 1. No angiographic evidence of significant epicardial coronary artery disease in this right dominant system. 2. Mildly dilated and severely globally hypokinetic left ventricle with estimated ejection fraction of 20-25%. 3. No evidence of aortic stenosis. 4. Normal LVEDP. These findings are consistent with a severe dilated nonischemic cardiomyopathy of unclear etiology, which appears to be well compensated at this point. Continue with goal-directed medical therapy. The patient has a LifeVest in place. He will follow up with us in the office and also [place] heart failure team. My findings and plan of care were discussed with the patient at length. All questions were addressed. Standard radial care. TID: [id number] RECEIPT: [id number] JOHNY/LOULOU/ANTHONY
--- NOTE | 2021-08-13 14:42 | Electrocardiograph Report ---
[facility] Test Date: 2021-08-13 Test Time: 07:13:23 Pat Name: JUANA OJEDA III Department: Room: A454 1 Gender: M Technical Sales Support Manager: BENJY : 1980 Requested By: VENTURA CABA Order Number: [id number] Reading MD: Shruthi Snyder Measurements Intervals [place] Rate: 99 P: 62 MN: 166 QRS: 52 QRSD: 92 T: 102 QT: 399 QTc: 512 Interpretive Statements Sinus rhythm Nonspecific T abnormalities, lateral leads Prolonged QT interval Compared to ECG 08/08/2021 19:41:25 No significant change Electronically Signed On 08-13-2021 14:41:58 EST by Shruthi Snyder
[2021-08-14] MEDS ORDERED: FUROSEMIDE 40 MG TAB PO SCH (10:00)
== END 2021-08-13 17:21 | disposition home or self-care (01) | DRG 286 ==
LOC: ED 17:23 → 4A 19:55 → OBSVTOIN 08-09 11:00
PROVIDERS: ADMIT Internal Medicine; ATTEND Hospitalist
PROC: 4A023N7 Measurement of Cardiac Sampling and Pressure, Left Heart, Percutaneous Approach (ICD-10-PCS; principal; 2021-08-13)
PROC: B2111ZZ Fluoroscopy of Multiple Coronary Arteries using Low Osmolar Contrast (ICD-10-PCS; 2021-08-13)
PROC: B2151ZZ Fluoroscopy of Left Heart using Low Osmolar Contrast (ICD-10-PCS; 2021-08-13)
DX: I11.0 Hypertensive heart disease with heart failure (principal); I50.43 Acute on chronic combined systolic (congestive) and diastolic (congestive) heart failure; J96.01 Acute respiratory failure with hypoxia; I42.9 Cardiomyopathy, unspecified; E66.01 Morbid (severe) obesity due to excess calories; I27.20 Pulmonary hypertension, unspecified; E11.9 Type 2 diabetes mellitus without complications; Z20.822 Contact with and (suspected) exposure to COVID-19; Z91.19 Patient's noncompliance with other medical treatment and regimen; Z87.891 Personal history of nicotine dependence; Z68.37 Body mass index [BMI] 37.0-37.9, adult
CPT/HCPCS: 36415; 71045; 74022; 78580; 80048; 80053; 82962; 83036; 83615; 83690; 83735; 83880; 84439; 84443; 84484; 85007; 85025; 85379; 85610; 86140; 93005; 93306; 93458; 99406; G0378; J1815; J3490; Q0162; A9540; C1894; J1644; J1940; J2250; J3010; J7030; Q9967; U0003